=== PATIENT | female | born 1990 | race Two or more races ===

== ENCOUNTER 2020-05-17 04:27 | Emergency (ER) | payer SELFPAY ==
[2020-05-17 04:58] VITALS: BP 118/50; PULSE 78; RESP 18; TEMP 37; O2SAT 97; BMI 43.9
--- NOTE | 2020-05-17 05:05 | PC.NURSE ---
dr mohr at bedside pt skin appears to be eczema
--- NOTE | 2020-05-17 05:09 | ED.GENADULT ---
HPI - General Adult General Chief complaint: Allergic Reaction Stated complaint: Hives/Allergic reaction Time Seen by Provider: 05/17/20 05:09 Source: patient Mode of arrival: ambulatory Limitations: no limitations History of Present Illness HPI narrative: This is a 29-year-old female with past medical history of asthma who comes in with complaints of 1 week of rough patches of itchy skin showing up at various parts of her body to include her left upper extremity right cheek and scattered areas on the chest. She has attempted to take Benadryl without success but denies any fevers, chills, recent travel, change in any clothing, lotions, cleaning products. Related Data Allergies Allergy/AdvReac Type Severity Reaction Status Date / Time nut - unspecified [nut] Allergy Severe THROAT Unverified 03/28/20 16:48 ITCHY Sulfa (Sulfonamide Allergy Intermediate SULFA MED Unverified 03/28/20 16:48 Antibiotics) MIGRAINE [SULFA (SULFONAMIDE ANTIBIOTICS)] penicillin V Allergy Unknown rash Unverified 10/19/17 00:00 Penicillins [PENICILLINS] Allergy Unknown HIVES Unverified 03/28/20 16:48 SHELLFISH Allergy Intermediate SWELLING Uncoded 03/28/20 16:48 ENVIRONMENTAL Allergy Unknown RUNNY NOSE Uncoded 03/28/20 16:48 Review of Systems Review of Systems: Pertinent positives and negatives as stated in HPI 10 point review of systems is otherwise negative. PMFSH Past Medical History Source: nursing notes reviewed Medical History Asthma Social History Social History Alcohol intake: never Smoking Status: Current every day smoker Substance Use Type: Marijuana Substance Use Frequency: Daily Last Used Substance: Days (ago) Any prior treatment program specific to substance use: No Advance Directives: No Advance Directives Information Provided: No Physical Exam Vital Signs: Vital Signs: Last Vital Signs Temp 98.6 F 05/17/20 04:58 Pulse 78 05/17/20 04:58 Resp 18 05/17/20 04:58 BP 118/50 L 05/17/20 04:58 Pulse Ox 97 05/17/20 04:58 Body Mass Index 43.9 VITAL SIGNS: Reviewed. GENERAL: Well developed, well nourished, in no acute distress. HEAD: Normocephalic/atraumatic, EYES: PERRLA, EOMI intact without pain, no nystagmus/pallor/icterus noted EARS: Ext canals without abnormality, TMs non-bulging and non-erythematous NOSE: Nares patent bilateral OROPHARYNX: no oral lesions noted, posterior pharynx clear and non-erythematous without noted tonsillar enlargement/erythema/exudates NECK: Supple, no adenopathy LUNGS: Normal breath sounds. No adventitious sounds or accessory muscle use. SpO2<97> CARDIOVASCULAR: Regular rate and rhythm without noted murmurs, no JVD or lower extremity edema. ABDOMEN: Soft, non-tender, non-distended with bowel sounds. No rigidity. No guarding. No palpable masses or hernias noted MUSCULOSKELETAL: No tenderness, deformities, or effusions noted on gross inspection. EXTREMITIES: No cyanosis, clubbing or edema. SKIN: Inspection of the skin reveals Raised, rough patches on extensor aspect of left upper extremity/ right superior chest /right cheek, but no ulcerations, jaundice, pallor, or petechiae. NEUROLOGIC: Alert and oriented x 4. Strength and sensation to light touch were grossly intact x 4. Course Course Course Narrative: This is a 29-year-old female with history and clinical presentation consistent with eczema. Patient was given recommendations for treatment and discharged home in stable condition. Discharge Plan Discharge Clinical Impression: Eczema Qualifiers: Eczema type: unspecified Qualified Code(s): L30.9 - Dermatitis, unspecified Patient Disposition: Home, Self-Care Instructions: Eczema (ED) Additional Instructions: 1. Limit showers to 3 times a week, do not use excessively hot water. 2. Recommend using Dove or Cetaphil for body wash. 3. Recommend using any type of emollient either Vaseline or [id number] eczema lotion. The patient and/or family acknowledge understanding of results (as applicable), diagnosis, treatment plan, need for follow up, and symptoms that should prompt a return to the emergency room. Referrals: Physician,None [Primary Care Provider] - 2 days
== END 2020-05-17 05:57 | disposition home or self-care (01) ==
LOC: HO.ED 05:23
PROVIDERS: Emergency Provider Student in an Organized Health Care Education/Training Program
DX: L30.9 Dermatitis, unspecified (principal); J45.909 Unspecified asthma, uncomplicated; F17.200 Nicotine dependence, unspecified, uncomplicated; Z71.6 Tobacco abuse counseling; F12.90 Cannabis use, unspecified, uncomplicated
CPT/HCPCS: 99283; 99284

== ENCOUNTER 2020-08-06 11:37 | Outpatient (REF) | payer MEDICAID, SELFPAY ==
[2020-08-07 19:02] LABS: C. trachomatis RNA TMA NOT DETECTED (NOT DETECTED); N. gonorrhoeae RNA TMA NOT DETECTED (NOT DETECTED)
[2020-08-09 06:57] LABS: HPV mRNA E6/E7 rflx Not Detected (Not Detected)
== END 2020-08-06 11:38 | disposition home or self-care (01) ==
LOC: HO.LAB 11:37
PROVIDERS: Visit Provider Advanced Practice Midwife
DX: N93.0 Postcoital and contact bleeding (principal); Z97.5 Presence of (intrauterine) contraceptive device; Z20.2 Contact with and (suspected) exposure to infections with a predominantly sexual mode of transmission
CPT/HCPCS: 36415; 87491; 87591; 87624; 88142; 99212

== ENCOUNTER 2020-09-19 10:54 | Outpatient (REF) | payer MEDICAID, SELFPAY ==
--- NOTE | ~2020-09-19 | US_ITS ---
EXAMINATION: US PELVIS COMPLETE US PELVIS TRANSVAGINAL CLINICAL INFORMATION: Post coital bleeding. COMPARISON: Pelvic ultrasound dated 01/04/2014. TECHNIQUE: Transabdominal and transvaginal imaging was performed. FINDINGS: The uterus is of normal size and echogenicity measuring 9.1 x 3.9 x 4.8 cm. A regular homogeneous endometrium is identified measuring 0.8 cm. IUD appears within appropriate position in the endometrial cavity. Both ovaries are of normal size and echogenicity. The right measures 2.9 x 1.9 x 2.5 cm for a volume of 7.2 mL. The left measures 3.1 x 2.2 x 2.6 cm for a volume of 9.3 mL. Left ovarian corpus luteum measuring 1.8 x 1.8 x 1.5 cm. No follow-up imaging recommended. There is trace pelvic free fluid. US/US transvaginal IMPRESSION: Sonographically unremarkable uterus and endometrium. IUD within the endometrial cavity. Left ovarian corpus luteum measuring 1.8 cm. No follow-up imaging recommended. Sonographically unremarkable right ovary. Trace pelvic free fluid.
--- NOTE | ~2020-09-19 | US_ITS ---
EXAMINATION: US PELVIS COMPLETE US PELVIS TRANSVAGINAL CLINICAL INFORMATION: Post coital bleeding. COMPARISON: Pelvic ultrasound dated 01/04/2014. TECHNIQUE: Transabdominal and transvaginal imaging was performed. FINDINGS: The uterus is of normal size and echogenicity measuring 9.1 x 3.9 x 4.8 cm. A regular homogeneous endometrium is identified measuring 0.8 cm. IUD appears within appropriate position in the endometrial cavity. Both ovaries are of normal size and echogenicity. The right measures 2.9 x 1.9 x 2.5 cm for a volume of 7.2 mL. The left measures 3.1 x 2.2 x 2.6 cm for a volume of 9.3 mL. Left ovarian corpus luteum measuring 1.8 x 1.8 x 1.5 cm. No follow-up imaging recommended. There is trace pelvic free fluid. US/US pelvic complete IMPRESSION: Sonographically unremarkable uterus and endometrium. IUD within the endometrial cavity. Left ovarian corpus luteum measuring 1.8 cm. No follow-up imaging recommended. Sonographically unremarkable right ovary. Trace pelvic free fluid.
== END 2020-09-19 10:55 | disposition home or self-care (01) ==
LOC: HO.US 10:54
PROVIDERS: Visit Provider Advanced Practice Midwife
DX: N93.0 Postcoital and contact bleeding (principal)
CPT/HCPCS: 76830; 76856

== ENCOUNTER → 2020-09-24 12:21 | Outpatient (BNVA) | payer MEDICAID, SELFPAY | PROVIDERS: Visit Provider Advanced Practice Midwife ==

== ENCOUNTER 2020-11-29 13:06 | Outpatient (REF) | payer MEDICAID, SELFPAY ==
[2020-11-30 10:19] LABS: CT PCR NOT DETECTED (Not Detect.); NG PCR NOT DETECTED (Not Detect.)
[2020-11-30 12:32] LABS: BV Int Neg Control Negative (Negative); BV Int Pos Control Positive (Positive)
== END 2020-11-29 13:07 | disposition home or self-care (01) ==
LOC: HO.LAB 13:06
PROVIDERS: Visit Provider Advanced Practice Midwife
DX: N92.1 Excessive and frequent menstruation with irregular cycle (principal); R10.2 Pelvic and perineal pain; T83.32XA Displacement of intrauterine contraceptive device, initial encounter
CPT/HCPCS: 81003; 81025; 87480; 87491; 87510; 87591; 87660; 99212

== ENCOUNTER 2020-11-29 15:28 | Outpatient (REF) | payer MEDICAID, SELFPAY ==
--- NOTE | ~2020-11-29 | US_ITS ---
EXAMINATION: PELVIC ULTRASOUND CLINICAL INFORMATION: Check IUD COMPARISON: Previous pelvic ultrasound 09/19/2020 TECHNIQUE: Transabdominal and transvaginal pelvic ultrasound was performed. Transvaginal exam was performed for better visualization of uterus and ovaries. FINDINGS: The uterus is anteverted and measures 8.5 x 4.2 x 5.7 cm in dimension. There is an IUD seen in the lower uterine segment. This is 1.8 cm from the superior aspect of the endometrium. The endometrium does not appear thickened measuring 0.8 cm. There is no focal uterine lesion. The ovaries are normal-appearing. The right ovary measures 2.8 x 1.5 x 1.8 cm and the left ovary measures 2.8 x 1.6 x 1.9 cm. There is no fluid in the pelvis. US/US pelvic and transvaginal IMPRESSION: Low position of IUD in the lower uterine segment.
== END 2020-11-29 15:29 | disposition home or self-care (01) ==
LOC: HO.HMGCX 15:28
PROVIDERS: Visit Provider Advanced Practice Midwife
DX: Z30.431 Encounter for routine checking of intrauterine contraceptive device (principal); N91.2 Amenorrhea, unspecified
CPT/HCPCS: 76830; 76856

== ENCOUNTER → 2020-12-13 11:26 | Outpatient (BNVA) | payer MEDICAID, SELFPAY | PROVIDERS: Visit Provider Advanced Practice Midwife ==

== ENCOUNTER → 2021-01-03 15:47 | Outpatient (BNVA) | payer MEDICAID, SELFPAY | PROVIDERS: Visit Provider Advanced Practice Midwife ==

== ENCOUNTER 2021-04-21 16:42 | Emergency (ER) | payer MEDICAID, SELFPAY ==
--- NOTE | ~2021-04-21 | XR_ITS ---
EXAMINATION: XR CHEST CLINICAL INFORMATION: Infected. Setting in this sternum. COMPARISON: None TECHNIQUE: Frontal view of the chest was obtained. FINDINGS: The lungs are well-expanded and clear of acute process. The heart size and pulmonary vascularity is normal. There is a horizontal metal pins and overlying the left breast. Otherwise rest the soft tissues are unremarkable. No gross bony abnormality. XR/XR chest 1V IMPRESSION: Horizontal radiopaque pin overlying the left breast, ? Piercing. Otherwise lungs are clear.
[2021-04-21 16:58] VITALS: BP 136/73; PULSE 80; RESP 16; TEMP 36.3; O2SAT 98; BMI 43.9
--- NOTE | 2021-04-21 21:19 | ED_ITS ---
HPI - Skin/Abscess/Foreign Bdy General Chief complaint: Skin/Abscess/Foreign Body Stated complaint: ?infected piercing Time Seen by Provider: 04/21/21 20:37 Source: patient Mode of arrival: ambulatory Limitations: no limitations History of Present Illness HPI narrative: Patient presents to the ED for infected piercing in the midsternal chest. Patient states having pacing for 10 years. Patient states 4 days ago her son started grabbing on it and any turn red, swollen, slight pus discharge from the area. Patient denies any other complaints. Related Data Home Medications Medication Instructions Recorded Confirmed cetirizine 10 mg tablet (Zyrtec) 10 mg PO DAILY PRN 12/13/20 01/03/21 levonorgestrel 20 mcg/24 hours (7 INTRAUTERINE 12/13/20 01/03/21 yrs) 52 mg intrauterine device (Mirena) Previous Rx's Medication Instructions Recorded ibuprofen 400 mg tablet 400 mg PO TID 7 Days #21 tab 09/24/20 fluconazole 150 mg tablet 150 mg PO ONCE PRN 1 Days #1 tab 01/03/21 (Diflucan) clindamycin HCl 300 mg capsule 300 mg PO TID 10 Days #30 cap 04/21/21 naproxen 500 mg tablet 500 mg PO BID PRN #20 tab 04/21/21 Allergies Allergy/AdvReac Type Severity Reaction Status Date / Time nut - unspecified [nut] Allergy Severe THROAT Verified 04/21/21 19:32 ITCHY Sulfa (Sulfonamide Allergy Intermediate SULFA MED Verified 04/21/21 19:32 Antibiotics) MIGRAINE [SULFA (SULFONAMIDE ANTIBIOTICS)] penicillin V Allergy Unknown rash Verified 04/21/21 19:32 Penicillins [PENICILLINS] Allergy Unknown HIVES Verified 04/21/21 19:32 SHELLFISH Allergy Intermediate SWELLING Uncoded 03/28/20 16:48 ENVIRONMENTAL Allergy Unknown RUNNY NOSE Uncoded 03/28/20 16:48 Review of Systems Review of Systems: Yes all other systems are reviewed and are negative Constitutional: Constitutional: Reports as per HPI and Reports no additional constitutional complaints Eyes: Eyes: Reports as per HPI and Reports no additional eye complaints ENT: Reports system reviewed and no additional complaints, except as documented and Reports as per HPI Cardiovascular: Cardiovascular: Reports as per HPI and Reports no additional cardiovascular complaints Comments: Infected chest wall pericing Respiratory: Respiratory: Reports as per HPI and Reports no additional respiratory complaints Gastrointestinal: Gastrointestinal: Reports as per HPI and Reports no additional gastrointestinal complaints Genitourinary: Genitourinary: Reports no additional female genitourinary complaints and Reports as per HPI Musculoskeletal: Musculoskeletal: Reports no additional musculoskeletal complaints and Reports as per HPI Neurologic: Reports system reviewed and no additional complaints, except as documented and Reports as per HPI Psychiatric: Psychiatric: Reports no additional psychiatric complaints and Reports as per HPI [facility] Past Medical History Medical History (Updated 04/21/21 @ 21:32 by DELMY Vásquez) Asthma Depression PCOS (polycystic ovarian syndrome) Seasonal allergies Surgical History Hx of section Hx of tonsillectomy Family History Family History Father Asthma Mother Fibromyalgia Thyroid disease Paternal Aunt Breast cancer Paternal Grandmother Breast cancer Social History Social History Alcohol intake: never Substance Use Type: Marijuana Advance Directives: No Physical Exam Vital Signs: Vital Signs: Last Vital Signs Temp 97.4 F 04/21/21 16:58 Pulse 80 04/21/21 16:58 Resp 16 04/21/21 16:58 BP 136/73 04/21/21 16:58 Pulse Ox 98 04/21/21 16:58 Body Mass Index 43.9 Const: General: cooperative, healthy appearing, comfortable, no acute distress, well developed, alert, awake and Physically active Orientation/consciousness: patient oriented x3 HENMT: Head: Yes normal to inspection, Yes No palpable skull fracture present, Yes normocephalic, Yes atraumatic and No abrasion Eyes: General: appearance normal, both eyes and all related structures Neck: Neck: Yes normal visual inspection, Yes full ROM, Yes no lymphadenopa thy, Yes no meningeal signs, Yes trachea midline, Yes supple and No tender Chest: Chest palpation & inspection: normal inspection of the chest and normal palpation of entire chest wall Chest/axillae images: 1. Needle piercing with surrounded erythema, swelling, and mild pus discharge. Resp: Effort & Inspection: normal respiratory effort and able to speak in com plete sentences Auscultation: clear to auscultation bilaterally Cardio: Jugular venous distension: no JVD Heart sounds: S1 normal heart sound present and S2 normal heart sound present GI: Inspection: Yes normal to inspection and No abdominal wall ecchymosis Palpation (GI): Soft to palpation, not firm, nontender, no guarding and not rigid : General: No CVA tenderness and Yes no CVA tenderness Back/Spine/Pelvis: Back: no CVA tenderness, No CVA tenderness and No back tenderness Skin: General skin exam: no rashes or lesions noted and elasticity normal Neuro: General: patient oriented x3, gait normal, no meningeal signs and CN's II-XI intact bilaterally Cranial nerves: Yes CN's II-XII intact bilaterally Extrem: General: Yes normal to inspection and Yes full ROM Psych: Appearance: grossly normal, well kempt and not disheveled Course Course Course Narrative: Chest x-ray will be ordered to look for needle placement. Reevaluation(s) Reevaluation #1: X-ray does not show any needle depth. Pacing area clean with sterile normal saline and Betadine iodine. 10 mL of lidocaine 2% was placed a round needle piercing. Size 11 blade was made to make incision. No pus drainage was drained only blood. Needle was removed. Pressure dressing placed. Patient states she can't take penicillin or cephalosporins due to allergy. Will be discharged with clindamycin. Patient states up-to-date with tetanus. Time: 21:30 MDM - Skin/Abscess/Foreign Bdy MDM Narrative Medical decision making narrative: Foreign body removal Discharge Plan Discharge Clinical Impression: Cellulitis Patient Disposition: Home, Self-Care Instructions: Cellulitis (ED) Additional Instructions: Your pacing was infected so it was removed. You need to be done with antibiotics to clear up the infection. Return to the ED for worsening redness, pus discharge, foul odor, fever, chills, chest pain, or any other concerning symptoms. Please follow-up with PCP Prescriptions: New clindamycin HCl 300 mg capsule 300 mg PO TID 10 Days Qty: 30 RF: 0 naproxen 500 mg tablet 500 mg PO BID PRN (Reason: pain) Qty: 20 RF: 0 No Action Mirena 20 mcg/24 hours (6 yrs) 52 mg intrauterine device intrauterine RF: 0 cetirizine [Zyrtec] 10 mg tablet 10 mg PO DAILY PRNRF: 0 fluconazole [Diflucan] 150 mg tablet 150 mg PO ONCE PRN (Reason: personal) 1 Days Qty: 1 RF: 1 ibuprofen 400 mg tablet 400 mg PO TID 7 Days Qty: 21 RF: 0 Stand Alone Forms: Work/School Release Print Language: Lithuanian
[2021-04-21] MEDS: Lidocaine HCl 2 % MPF 5 ML VIAL INFILTRATI ×2 (21:20→21:21)
== END 2021-04-21 21:43 | disposition home or self-care (01) ==
PROVIDERS: Emergency Provider Internal Medicine
DX: M79.5 Residual foreign body in soft tissue (principal); L03.313 Cellulitis of chest wall
CPT/HCPCS: 10120; 71045; 99283; 99284

== ENCOUNTER 2021-09-25 12:48 | Outpatient (REF) | payer MEDICAID, SELFPAY ==
[2021-09-26 09:19] LABS: CT PCR NOT DETECTED (Not Detect.); NG PCR NOT DETECTED (Not Detect.)
[2021-09-26 09:44] LABS: BV Int Neg Control Negative (Negative); BV Int Pos Control Positive (Positive)
== END 2021-09-25 12:49 | disposition home or self-care (01) ==
LOC: HO.LAB 12:48
PROVIDERS: Visit Provider Advanced Practice Midwife
DX: Z30.432 Encounter for removal of intrauterine contraceptive device (principal)
CPT/HCPCS: 58301; 87480; 87491; 87510; 87591; 87660

== ENCOUNTER 2021-12-29 11:24 | Emergency (ER) | payer MEDICAID, SELFPAY ==
[2021-12-29 11:32] VITALS: BP 136/77; PULSE 75; RESP 18; TEMP 37.2; O2SAT 97; BMI 42.0
[2021-12-29 12:01] LABS: COVID-19 Test Negative (Negative)
--- NOTE | 2021-12-29 12:10 | ED.GENADULT ---
HPI - General Adult General Chief complaint: Upper Respiratory Symptoms Stated complaint: cough asthma Time Seen by Provider: 12/29/21 12:10 Source: patient Mode of arrival: ambulatory Limitations: no limitations History of Present Illness HPI narrative: Patient is a 31 year old female presenting to the emergency department today with a cough. Patient states that since , she has had a cough. Patient states that she has a history of asthma and her nebulizer at home is broken. Patient denies any dizziness, lightheadedness, abdominal pain, nausea, vomiting, fever, chills, blurry vision, double vision, loss of vision, chest pain, difficulty breathing, shortness of breath, back pain, night sweats, pain with urination, increased urinary frequency, increased urinary urgency, blood in her urine or stool, syncope or a near syncopal episode, recent trauma or falls, bowel incontinence, bladder incontinence, bowel retention, bladder retention, or any other complaints at this time. Onset (ago): day(s) Severity: mild Severity scale (1-10): 2 Relieving factors: none Exacerbating factors: none Associated symptoms: cough Treatments prior to arrival: none Related Data Home Medications Medication Instructions Recorded Confirmed cetirizine 10 mg tablet (Zyrtec) 10 mg PO DAILY PRN 12/13/20 01/03/21 levonorgestrel 20 mcg/24 hours (7 intrauterine 12/13/20 01/03/21 yrs) 52 mg intrauterine device (Mirena) hydroxychloroquine 200 mg tablet 200 mg PO BID 09/25/21 metformin 500 mg tablet,extended 1,000 mg PO BID 09/25/21 release 24 hr Previous Rx's Medication Instructions Recorded ibuprofen 400 mg tablet 400 mg PO TID break through 09/24/20 bleeding 7 days #21 tabs doxycycline hyclate 100 mg tablet 100 mg PO BID 7 days #14 tabs 12/29/21 fluconazole 150 mg tablet 150 mg PO Q3D 2 doses #2 tabs 12/29/21 (Diflucan) prednisone 20 mg tablet 20 mg PO DAILY 12 days #26 tabs 12/29/21 Allergies Allergy/AdvReac Type Severity Reaction Status Date / Time nut - unspecified [nut] Allergy Severe THROAT Verified 09/25/21 13:03 ITCHY Sulfa (Sulfonamide Allergy Intermediate SULFA MED Verified 09/25/21 13:03 Antibiotics) MIGRAINE [SULFA (SULFONAMIDE ANTIBIOTICS)] penicillin V Allergy Unknown rash Verified 09/25/21 13:03 Penicillins [PENICILLINS] Allergy Unknown HIVES Verified 09/25/21 13:03 SHELLFISH Allergy Intermediate SWELLING Uncoded 03/28/20 16:48 ENVIRONMENTAL Allergy Unknown RUNNY NOSE Uncoded 03/28/20 16:48 Review of Systems Constitutional: Constitutional: Reports no additional constitutional complaints, Denies chills, Denies fever(s) and Denies night sweats Eyes: Eyes: Reports no additional eye complaints, Denies blurry vision, Denies change in vision, Denies diplopia, Denies eye discharge, Denies loss of vision and Denies eye pain ENT: Denies dizziness Cardiovascular: Cardiovascular: Reports no additional cardiovascular complaints, Denies chest pain, Denies lightheadedness, Denies Loss of Consciousness and Denies dyspnea Respiratory: Respiratory: Reports no additional respiratory complaints, Reports cough and Denies dyspnea Gastrointestinal: Gastrointestinal: Reports no additional gastrointestinal complaints, Denies abdominal pain, Denies melena, Denies hematochezia, Denies change in bowel habits and Denies change in stool character Genitourinary: Genitourinary: Denies hematuria, Denies urinary frequency, Denies dysuria, Denies urinary incontinence, Denies urinary hesitancy and Denies urinary urgency Musculoskeletal: Musculoskeletal: Reports no additional musculoskeletal complaints, Denies numbness and Denies tingling Neurologic: Denies dizziness, Denies loss of vision, Denies numbness and Denies tingling Psychiatric: Psychiatric: Reports no additional psychiatric complaints Endocrine: Endocrine: Reports no additional endocrine complaints Hematologic/Lymphatic: Hematologic/Lymphatic: Reports no additional hematologic/lymphatic complaints Allergic/Immunologic: Allergic/Immunologic: Reports no additional allergic/immunologic complaints [facility] [place] Past Medical History Attestation statement: The following information was validated with the patient. Source: old records reviewed Medical History Asthma Benign neoplasm of pituitary gland and craniopharyngeal duct Depression Lupus PCOS (polycystic ovarian syndrome) Seasonal allergies Surgical History Hx of section Hx of tonsillectomy Family History Family History Father Asthma Mother Fibromyalgia Thyroid disease Paternal Aunt Breast cancer Paternal Grandmother Breast cancer Maternal Aunt Breast cancer Social History Social History Alcohol intake: never Patient Tobacco Use Status: Current someday Tobacco user Substance Use Type: Marijuana Advance Directives: No Advance Directives Information Provided: No Current occupational status: employed 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 Physical Exam ED Vital Signs: Vital Signs - 24 hr 12/29/21 11:32 12/29/21 12:25 Temperature 98.9 F Pulse Rate 75 86 Respiratory Rate 18 18 Blood Pressure 136/77 Pulse Oximetry 97 Oxygen Delivery Method Room Air BMI result Body Mass Index 42.0 Const General: cooperative, no acute distress, alert and awake Nutritional Appearance: well nourished Orientation/consciousness: patient oriented x3 Limitations: no limitations HENMT Head: Yes normal to inspection and Yes atraumatic Ears: hearing grossly normal bilaterally and external ears normal General nose exam: Normal external nose present, no nasal discharge noted and no epistaxis Face and sinus: Yes normal facial exam, No abrasion and No laceration Mouth: Normal oral and palatal mucosa present, no drooling and no muffled voice Eyes General: appearance normal, both eyes and all related structures Periorbital: periorbital findings normal Eyelids: Yes eyelids normal Conjunctivae: conjunctivae normal Pupils: Equal, round and reactive pupils present EOM: EOMs intact bilaterally Neck Neck: Yes normal visual inspection, Yes full ROM and Yes no lymphadenopathy Chest Chest palpation & inspection: normal inspection of the chest Resp Effort & Inspection: normal respiratory effort and able to speak in complete sentences Auscultation: wheezes scattered wheezes Cardio Rate: regular rate Rhythm: regular rhythm GI Inspection: Yes normal to inspection Neuro General: patient oriented x3 and moves all extremities Cranial nerves: Yes Equal, round and reactive pupils present Cognition (Neuro): normal cognition Motor exam (neuro): 5/5 motor strength present throughout Sensory Exam: Normal double simultaneous stimulation for sensation Coordination: [id number] test normal Extrem General: Yes normal to inspection, Yes full ROM and Yes capillary refill normal Psych Appearance: grossly normal Mental Status: mental status grossly normal Affect: normal affect Attitude: cooperative Thought process: Normal thought process present Thought content: Normal thought content present Insight: Good insight present (Psych) Medical Decision Making MDM Narrative Medical decision making narrative: Patient is a 31 year old female presenting to the emergency department today with a cough. Patient's physical exam showed scattered wheezes but was otherwise unremarkable. Patient's rapid COVID-19 and influenza swabs were negative. I explained my physical exam findings as well as all test results to the patient. I answered all questions asked by the patient. Patient received IM Decadron and a duoneb which she stated helped her symptoms significantly. I stressed the importance of the patient taking her medication as prescribed. I stressed the importance of the patient following up with her primary care provider. I stressed the importance of the patient returning to the emergency department immediately if her symptoms were to worsen or if she were to develop any dizziness, shortness of breath, difficulty breathing, chest pain, blurry vision, loss of vision, nausea, vomiting, abdominal pain, fever, chills, back pain, or any other complaints. Patient verbalized agreement and understanding with this treatment plan and discharge. Differential Diagnosis Differential Diagnosis: asthma exacerbation, viral illness, cough Medical Records Medical records reviewed: Yes I reviewed the patient's medical records. Lab Data Lab results reviewed: Yes I reviewed the patient's lab results. Labs: Lab Results 12/29/21 12/29/21 Range/Units 11:38 11:38 COVID-19 (MEDHAT) Negative (Negative) COVID-19 Clin Com See Note Influenza Type A (RAI) Negative (Negative) Influenza Type B (RAI) Negative (Negative) Influenza A & B Note See Note Discharge Plan Discharge Clinical Impression: Asthma exacerbation Patient Disposition: Home, Self-Care Instructions: Asthma (ED) Additional Instructions: Follow up with your primary care provider. Return to the emergency department immediately if your symptoms worsen or if you develop any dizziness, shortness of breath, difficulty breathing, chest pain, blurry vision, loss of vision, nausea, vomiting, abdominal pain, fever, chills, back pain, or any other complaints. Prescriptions: New prednisone 20 mg tablet 20 mg PO DAILY 12 Days Qty: 26 0RF Rx Instructions: Take 3 tablets for 5 days THEN; Take 2 tablets for 4 days THEN; Take 1 tablet for 3 days doxycycline hyclate 100 mg tablet 100 mg PO BID 7 Days Qty: 14 0RF fluconazole [Diflucan] 150 mg tablet 150 mg PO Q3D Qty: 2 0RF Rx Instructions: may repeat second dose 72 hrs after first dose if symptoms persist No Action Mirena 20 mcg/24 hours (6 yrs) 52 mg intrauterine device intrauterine cetirizine [Zyrtec] 10 mg tablet 10 mg PO DAILY PRN ibuprofen 400 mg tablet 400 mg PO TID 7 Days Qty: 21 0RF Rx Instructions: break through bleeding protocol one week dosing only metformin 500 mg tablet extended release 24 hr 1,000 mg PO BID hydroxychloroquine 200 mg tablet 200 mg PO BID Referrals: [facility] [place] Family Medicine [Provider Group] (Call to establish and follow up with a primary care provider. If you have a primary care provider, please follow up with them. ) [facility] [place] Primary Care, Leno [Provider Group] (Call to establish and follow up with a primary care provider. If you have a primary care provider, please follow up with them. ) [facility] [place] Primary Care,Andrea [Provider Group] (Call to establish and follow up with a primary care provider. If you have a primary care provider, please follow up with them. ) Stand Alone Forms: Work/School Release Interventions: ED Discharge Assessment Last Done: 12/29/21 13:03 Discharge Date/Time: 12/29/21 13:06 Print Language: Urdu
[2021-12-29 12:22] LABS: IDNOW Serial# 9DB6401D; Influenza A Negative (Negative); Influenza B2 Negative (Negative)
[2021-12-29] MEDS: Albuterol/Iprat 2.5/0.5MG 3 ML AMPUL.NEB INHALE (12:23)
[2021-12-29 12:25] VITALS: PULSE 86; RESP 18; O2SAT 97
[2021-12-29] MEDS: dexAMETHasone sod phosphate 10 MG/ML VIAL IM (13:00)
== END 2021-12-29 13:06 | disposition home or self-care (01) ==
PROVIDERS: Emergency Provider Emergency Medicine
DX: J45.901 Unspecified asthma with (acute) exacerbation (principal); R05.9 Cough, unspecified; F17.200 Nicotine dependence, unspecified, uncomplicated; Z20.822 Contact with and (suspected) exposure to COVID-19; Z71.6 Tobacco abuse counseling; Z79.899 Other long term (current) drug therapy
CPT/HCPCS: 87502; 87635; 94640; 96372; 99284; J1100

== ENCOUNTER 2024-01-10 00:21 | Emergency (ER) | payer MEDICAID, SELFPAY ==
--- NOTE | ~2024-01-10 | XR_ITS ---
EXAMINATION: XR FOOT, RIGHT CLINICAL INFORMATION: pain, swelling COMPARISON: None available. TECHNIQUE: AP, lateral, and oblique views of the right foot. FINDINGS: Radiod[employer] toenail decorations are noted. The bones are normal. Mild soft tissue swelling in the foot. No fracture. Alignment is anatomic. Joint spaces are maintained. XR/XR foot RT min 3V IMPRESSION: Mild soft tissue swelling in the foot. No acute osseous findings.
[2024-01-10 01:18] VITALS: BP 124/70; PULSE 85; RESP 17; TEMP 37; O2SAT 99; BMI 48.4
--- NOTE | 2024-01-10 02:22 | ED_ITS ---
HPI - Skin/Abscess/Foreign Bdy General Chief complaint: Extremity Injury, Lower Stated complaint: right foot pain swelling Time Seen by Provider: 01/10/24 02:12 Source: patient and old records reviewed Mode of arrival: ambulatory Limitations: no limitations History of Present Illness ED Provider: YURIDIA PACHECO narrative: 33 yo female with PMH of PCOS and lupus here with c/o R foot swelling and redness she is on plaquenil initially started after dropping heavy object on foot but then noted redness and swelling isolated to top of foot no fevers, saw faint pink streak on lower ankle as well. She has not been seen by anyone. Area was present when she was in [place] denies skin trauma or open wounds MD complaint: rash Onset (ago): day(s) (3) Tetanus up to date: yes Location: R foot Severity: mild Quality: aching Pain Consistency: constant Relieving factors: none Exacerbating factors: palpation Context: other (trauma) Associated symptoms: denies other symptoms Treatments prior to arrival: none Related Data Home Medications ?Medication ?Instructions ?Recorded ?Confirmed cetirizine 10 mg tablet (Zyrtec) 10 mg PO DAILY PRN 12/13/20 01/03/21 levonorgestrel 21 mcg/24 hr (up to intrauterine 12/13/20 01/03/21 8 years) 52 mg intrauterine device (Mirena) hydroxychloroquine 200 mg tablet 200 mg PO BID 09/25/21 metformin 500 mg tablet,extended 1,000 mg PO BID 09/25/21 release 24 hr Previous Rx's ?Medication ?Instructions ?Recorded ibuprofen 400 mg tablet 400 mg PO TID break through 09/24/20 bleeding 7 days #21 tabs doxycycline hyclate 100 mg tablet 100 mg PO BID 7 days #14 tabs 12/29/21 fluconazole 150 mg tablet 150 mg PO Q3D 2 doses #2 tabs 12/29/21 (Diflucan) prednisone 20 mg tablet 20 mg PO DAILY 12 days #26 tabs 12/29/21 clindamycin HCl 300 mg capsule 300 mg PO Q8H 7 days #21 caps 01/10/24 Allergies Allergy/AdvReac Type Severity Reaction Status Date / Time nut - unspecified [nut] Allergy Severe THROAT Verified 01/10/24 01:24 ITCHY Sulfa (Sulfonamide Allergy Intermediate SULFA MED Verified 01/10/24 01:24 Antibiotics) MIGRAINE [SULFA (SULFONAMIDE ANTIBIOTICS)] penicillin V Allergy Unknown rash Verified 01/10/24 01:24 Penicillins [PENICILLINS] Allergy Unknown HIVES Verified 01/10/24 01:24 SHELLFISH Allergy Intermediate SWELLING Uncoded 01/10/24 01:24 ENVIRONMENTAL Allergy Unknown RUNNY NOSE Uncoded 01/10/24 01:24 Review of Systems Review of Systems: Constitutional : No Fever, No Chills ENT/Mouth : No sore throat, No Rhinorrhea Eyes: No Eye Pain, No Swelling, No Redness Cardiovascular : No Chest Pain, No SOB Respiratory : No Cough, No Sputum Gastrointestinal : No Nausea, No Vomiting, No Diarrhea, No abdominal Pain Genitourinary : No Dysuria, No Hematuria Musculoskeletal : No joint pain, No Myalgias, No Joint Swelling Skin : No Skin Lesions, positive skin rash Neuro : No Weakness, No Numbness, No Headache Psych : No Anxiety, No Depression Heme/Lymph: No Bruising, No Bleeding,No Lymphadenopathy Endocrine : No Polyuria, No Polydipsia All other systems reviewed and are negative [facility] Past Medical History Attestation statement: The following information was validated with the patient. 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 Oriented X3. No acute distress. Eyes: Pupils equal, round and reactive to light. ENT: Pharynx normal. Neck: Normal inspection. Neck supple. CVS: Normal heart rate and rhythm. Pulses normal. Respiratory: No respiratory distress. Breath sounds normal. Abdomen: Soft and nontender. Skin: Skin warm and dry. Normal skin color. Normal skin turgor. Extremities: No lower extremity edema. No calf ttp dorsum of R foot redness and mild swelling I can see a very faint pink streak noted near ankle she is NV intact no abscess noted no crepitus no sig ttp normal ROM of joints Neuro: Oriented X 3. No motor deficit. No sensory deficit. Medical Decision Making Medical Decision Making MDM Narrative: 33 yo female with PMH of PCOS and lupus here with c/o R foot swelling and redness she has no systemic symptoms has PCN allergy and has done well with clindamycin in the past at this time will start on oral antibiotics it is isolated to the foot no calf pain swelling or ttp to suggest DVT - not toxic appearing. Given strict precautions to return Differential Diagnosis Differential Diagnoses: The differential diagnosis associated with the presentation includes strain, cellulitis Admission/Observation Consideration of admission/observation: Escalation of care including admission/observation considered not toxic, no systemic symptoms Independent Interpretation I performed an independent interpretation of an: Plain X-Ray (no fx) Radiology Impression Discussion of test interpretation with radiology: I have reviewed the radiologist's reading. External Record Review External record reviewed: Office record Prescription Management I considered prescription management with: Antibiotic Discharge Plan Discharge Clinical Impression: Cellulitis Qualifiers: Site of cellulitis: extremity Site of cellulitis of extremity: lower extremity Laterality: right Qualified Code(s): L03.115 - Cellulitis of right lower limb Patient Disposition: Home, Self-Care Instructions: Cellulitis (ED) Additional Instructions: xray normal return for worsening redness, fevers, increased swelling or pain take an over the counter probiotic while on this antibiotic seek care if you have more than 6 episodes of diarrhea a day Prescriptions: New clindamycin HCl 300 mg capsule 300 mg PO Q8H 7 Days Qty: 21 0RF No Action prednisone 20 mg tablet 20 mg PO DAILY 12 Days Qty: 26 0RF Rx Instructions: Take 3 tablets for 5 days THEN; Take 2 tablets for 4 days THEN; Take 1 tablet for 3 days doxycycline hyclate 100 mg tablet 100 mg PO BID 7 Days Qty: 14 0RF fluconazole [Diflucan] 150 mg tablet 150 mg PO Q3D Qty: 2 0RF Rx Instructions: may repeat second dose 72 hrs after first dose if symptoms persist Mirena 20 mcg/24 hours (6 yrs) 52 mg intrauterine device intrauterine cetirizine [Zyrtec] 10 mg tablet 10 mg PO DAILY PRN ibuprofen 400 mg tablet 400 mg PO TID 7 Days Qty: 21 0RF Rx Instructions: break through bleeding protocol one week dosing only metformin 500 mg tablet extended release 24 hr 1,000 mg PO BID hydroxychloroquine 200 mg tablet 200 mg PO BID Print Language: Kenyan
[2024-01-10] MEDS: Clindamycin HCL 300 MG CAPSULE PO (02:35)
[2024-01-10 02:43] VITALS: BP 120/64; PULSE 80; RESP 18; TEMP 36.8; O2SAT 99
[2024-01-10 02:45] VITALS: BP 120/64; PULSE 80; RESP 18; TEMP 36.8; O2SAT 99
== END 2024-01-10 02:45 | disposition home or self-care (01) ==
PROVIDERS: Emergency Provider Emergency Medicine
DX: L03.115 Cellulitis of right lower limb (principal); F17.200 Nicotine dependence, unspecified, uncomplicated
CPT/HCPCS: 73630; 99283; 99284

== ENCOUNTER → 2024-02-14 10:11 | Outpatient (BNVA) | payer MEDICAID, SELFPAY | PROVIDERS: PCP Nurse Practitioner; Visit Provider Physician Assistant Surgical ==

== ENCOUNTER 2024-03-17 08:00 | Outpatient (AMB) | payer MEDICAID, SELFPAY ==
--- NOTE | 2024-03-17 09:06 | MHC.OFFVISWM ---
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 BMI 44.3 Allergies nut - unspecified [nut] Allergy (Severe, Verified 03/17/24 09:06) THROAT ITCHY Sulfa (Sulfonamide Antibiotics) [SULFA (SULFONAMIDE ANTIBIOTICS)] Allergy (Intermediate, Verified 03/17/24 09:06) SULFA MED MIGRAINE penicillin V Allergy (Unknown, Verified 03/17/24 09:06) rash Penicillins [PENICILLINS] Allergy (Unknown, Verified 03/17/24 09:06) HIVES SHELLFISH Allergy (Intermediate, Uncoded 03/17/24 09:06) SWELLING ENVIRONMENTAL Allergy (Unknown, Uncoded 03/17/24 09:06) RUNNY NOSE Medication List - Last Reconciled 03/17/24 by Gustavo Lim MD albuterol sulfate 90 mcg/actuation 2 puffs inhalation Q6H PRN hydroxychloroquine (Plaquenil) 200 mg PO BID metformin ER 1,000 mg PO BID semaglutide (weight loss) (Wegovy) 0.5 mg subcut QWEEK HPI HPI 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 BMI 44.3: Details: Start time: 9.00am, End time: 9.35am ?I spent 30 minutes speaking with the patient on the phone plus an additional 5 minutes reviewing and updating records for a total of 35 minutes HPI Comments Details: Previous weight loss efforts: Wegovy (lost 30lbs) Wakes up: 6.30am, Sleeps: 9.30pm Breakfast: skips Lunch: skips Dinner: 4pm (rice, beans, corn, chicken, pasta) Snacks: Fruits/cheese x1-2 before dinner Exercise: Stepper Fluids: coffee: none, tea: none, soda: none, juice: (cranberry) 2-3/wk, ETOH: none PFSH Medical History (Updated 03/17/24 @ 09:12 by Gustavo Lim MD) Morbid obesity Benign neoplasm of pituitary gland and craniopharyngeal duct Lupus Seasonal allergies Depression PCOS (polycystic ovarian syndrome) Asthma Surgical History (Updated 02/14/24 @ 11:13 by Yesica Santos CMA) Hx of section Hx of tonsillectomy Family History (Updated 02/14/24 @ 10:36 by Yesica Santos CMA) Father Asthma Mother Fibromyalgia Thyroid disease Paternal Aunt Breast cancer Paternal Grandmother Breast cancer Maternal Aunt Breast cancer Family/Other FH: thyroid cancer Social History (Updated 02/14/24 @ 11:14 by Yesica Santos CMA) Alcohol intake: never Patient Tobacco Use Status: Current someday Tobacco user Cigarettes Per Day: 3 Substance Use Type: Marijuana Current occupational status: employed 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 Female Reproductive History Menstrual Age of Menarche: 11 Telehealth Telehealth Telehealth Platform: Telephone Location of provider rendering services: practice address Location of patient: address on file Patient Identification confirmed using: Name, : Yes Telehealth method: voice only Patient verbally consented to treatment: Yes Patient verbally consented to billing insurance company: Yes Patient informed of any privacy concerns related to visit: Yes Minutes spent on Phone/Video with Pt.: 35 Assessment & Plan Assessment & Plan (1) Morbid obesity: Code(s): E66.01 - Morbid (severe) obesity due to excess calories Category: Medical Plan: 1.? Plan for lap sleeve gastrectomy. If diaphragmatic or ventral hernias are present at time of surgery, these will be repaired laparoscopically as well. Risks and complications include possible conversion to an open procedure, anastomotic leak, bleeding requiring transfusion, small bowel obstruction, , DVT and pulmonary embolism, cardiac, or pulmonary complications, as skilled nursing complications such as anastomotic ulcer, insufficient weight loss and vitamin deficiencies. I emphasized the importance of close follow-up, adherence to instructions and good communication. 2. You will receive a link of our software maximiliano to generate an individualized nutritional and exercise plan specific for you. Please send me a screenshot of the plans you will generate Meal to include lean meat (beef, fish, pork, turkey, chicken), or chinese yogurt, or egg whites, or beans with a salad with olive oil and fruits (berries, pears, apples, kiwi). Avoid salt, breads, potatoes, rice, pasta, desserts. ?3. If you choose shakes, each shake would be drunk slowly, like coffee in a period of 2 hours. ?4. If you choose bars, cut each bar in 4 pieces and eat each piece in 30min ?to make each bar last 2 hours. ?5. I emphasized the importance of measuring accurately the food portion and measure it when serving the food in plate ?6. The meal portions include a specific number of forks of meat and salad. You always eat the meat portion but you can replace up to half of salad/vegetables portion with rice, potatoes or pasta, or a fruit ?if you like. The less you do it the better weight loss will be. ?7. One full-size fork is what it can be scooped on the fork without falling aside and not what can be bit with the fork. Use regular forks like those you find in a typical restaurant. ?8.? Please send me weight measurements as soon as possible and then once a week. Always include your diet and exercise plan. 9. The best choice would be to purchase a stationary bike, elliptical or treadmill at home that can track calories. Let me know if you do so I can give you an exercise plan. ?10.?It is important of avoiding and for at least 18 months postoperatively and has been discussed at the infosession. ?11. Goal is to lose at least 1.5-2lbs per week ?12. Goal to lose 10% of your weight before surgery, which is about 26lbs. Ultimate weight goal: 232lbs before surgery 13. Please follow the diet plan exactly without any change. If you don't like something about the plan or you feel hungry you need to communicate with me so I can help you revise the plan. You should not change the plan yourself. 14. To be scheduled for EGD due to assess the anatomy of the stomach. The possibility of biopsies was discussed. Patient needs to avoid use of NSAIDs and aspirin for 1 week prior to EGD. Risks of perforation and bleeding was discussed with the patient. This will be an outpatient procedure with IV sedation.
[2024-03-17 09:15] VITALS: BMI 44.3
== END 2024-03-17 09:35 | disposition home or self-care (01) ==
LOC: HO.HBS 08:00
PROVIDERS: PCP Nurse Practitioner; Referring Provider Nurse Practitioner; Visit Provider Surgery
DX: E66.01 Morbid (severe) obesity due to excess calories (principal); Z68.41 Body mass index [BMI] 40.0-44.9, adult
CPT/HCPCS: 99203

== ENCOUNTER → 2024-03-17 08:00 | Outpatient (BNVA) | payer MEDICAID, SELFPAY | PROVIDERS: PCP Nurse Practitioner; Visit Provider Surgery ==

== ENCOUNTER → 2024-03-22 10:00 | Outpatient (BNVA) | payer MEDICAID, SELFPAY | PROVIDERS: PCP Nurse Practitioner; Visit Provider Counselor Mental Health ==

== ENCOUNTER → 2024-03-22 10:00 | Outpatient (AMB) | payer OTHER, SELFPAY ==
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
== END ==
PROVIDERS: PCP Nurse Practitioner; Visit Provider Counselor Mental Health
DX: F43.23 Adjustment disorder with mixed anxiety and depressed mood (principal); E66.01 Morbid (severe) obesity due to excess calories
CPT/HCPCS: 90837

== ENCOUNTER 2024-03-30 09:22 | Outpatient (REF) | payer MEDICAID, SELFPAY ==
--- NOTE | ~2024-03-30 | XR_ITS ---
EXAMINATION: XR CHEST CLINICAL INFORMATION: E66.01 - Morbid (severe) obesity due to excess calories COMPARISON: None available. TECHNIQUE: PA and lateral views of the chest. FINDINGS: Cardiac, hilar, and mediastinal contours are normal. The lungs are clear bilaterally. There is no pneumothorax or effusion. There is no soft tissue or bony abnormality. XR/XR chest 2V IMPRESSION: Normal chest. Electronically signed by: Harpreet Schwartz MD 06/10/2024 07:07 PM KEILY CARROLL
--- NOTE | 2024-03-30 09:30 | ECG_ITS ---
Test Reason : MOR OBS Blood Pressure : / mmHG Vent. Rate : 084 BPM Atrial Rate : 084 BPM P-R Int : 132 ms QRS Dur : 094 ms QT Int : 350 ms P-R-T Axes : 033 039 017 degrees QTc Int : 413 ms Normal sinus rhythm Normal ECG No previous ECGs available Referred By: Gustavo Lim Electronically Signed By:ELLIS DAVID
[2024-03-30 09:42] LABS: MANUAL DIFF FLAG NO
[2024-03-30 10:11] LABS: Basophils Percent Auto 0.4 % (0-2); Eosinophils Percent Auto 0.5 % (0-4); Hematocrit 40.8 % (37.0-47.0); Hemoglobin 13.3 g/dl (12.0-16.0); Imm Gran Abs Auto 0.01 X10*3/uL (0.00-0.03); Imm Gran Pct Auto 0.2 % (0.0-0.4); Mean Corpuscular HGB Conc 32.6 g/dl (31.0-35.0); Mean Corpuscular Hemoglobin 24.1 pg (27.0-33.0); Mean Corpuscular Volume 73.8 fL (80.0-98.0); Monocytes Absolute Auto 0.4 X10*3/uL (0.1-1.2); Monocytes Percent Auto 6.5 % (2-11); Neutrophils Absolute Auto 3.1 x10*3/uL (2.0-8.3); Neutrophils Percent Auto 56.4 % (45-73); Platelet Count 209 X10*3/uL (160-400); Red Blood Count 5.53 X10*6/uL (4.20-5.50); Red Cell Distribution Width 17.1 % (11.0-16.0); White Blood Count 5.5 X10*3/uL (4.8-10.8)
[2024-03-30 10:36] LABS: Estimated Average Glucose 105 mg/dL; Hemoglobin A1c % 5.3 % (<6.0)
[2024-03-30 11:00] LABS: Alanine Aminotransferase 46 U/L (0-31); Albumin Level 4.2 g/dL (3.5-5.0); Alkaline Phosphatase 79 U/L (39-117); Anion Gap 10 (12-20); Aspartate Amino Transferase 25 U/L (5-31); Bilirubin Total 0.3 mg/dL (0.0-1.0); Blood Urea Nitrogen 13 mg/dL (9-16); C Reactive Protein 0.85 mg/dL (< or = 0.50); Calcium 9.2 mg/dL (8.4-10.2); Carbon Dioxide 24 mmol/L (22-29); Chloride 110 mmol/L (96-108); Cholesterol 140 mg/dL (<200); Estimated Glomerular Filt Rate > 60; Ferritin 33 ng/mL (10-122); Glucose Random 95 mg/dL (60-115); HDL Cholesterol 41 mg/dL (>40); Insulin 19 uU/mL (2-29); Iron 19 mcg/dL (30-160); LDL Cholesterol Calculated 92 mg/dL (<100); Percent Iron Saturation 6 % (15-50); Potassium 3.9 mmol/L (3.3-5.1); Sodium 140 mmol/L (135-145); TSH reflex Free T4 0.64 uIU/mL (0.32-4.0); Total Iron Binding Capacity 297 mcg/dL (228-428); Total Protein 8.2 g/dL (6.5-8.0); Triglycerides 36 mg/dL (<150); Unsaturated Iron Binding 278 ug/dL; Vitamin D 25-OH Total 32.3 ng/mL (>30)
[2024-03-30 11:19] LABS: Folate 10.9 ng/mL (> or = 4.0); Vitamin B12 768 pg/mL (200-900)
[2024-04-04 02:59] LABS: Zinc 68 mcg/dL (60-130)
[2024-04-04 18:18] LABS: Vitamin A 49 mcg/dL (38-98)
[2024-04-07 06:18] LABS: Vitamin B1 8 nmol/L (8-30)
== END 2024-03-30 09:23 | disposition home or self-care (01) ==
LOC: HO.LAB 09:22
PROVIDERS: PCP Nurse Practitioner; Visit Provider Surgery
DX: E66.01 Morbid (severe) obesity due to excess calories (principal); E28.2 Polycystic ovarian syndrome; J45.909 Unspecified asthma, uncomplicated; M32.9 Systemic lupus erythematosus, unspecified
CPT/HCPCS: 36415; 71046; 80053; 80061; 82306; 82607; 82728; 82746; 83036; 83525; 83540; 84425; 84443; 84590; 84630; 85025; 86140; 93005

== ENCOUNTER → 2024-03-30 10:03 | Outpatient (BNV) | payer MEDICAID, SELFPAY | PROVIDERS: PCP Nurse Practitioner; Visit Provider Radiology Diagnostic Radiology | DX: J45.909 Unspecified asthma, uncomplicated (principal) | CPT/HCPCS: 71046 ==

== ENCOUNTER 2024-04-05 10:14 | Outpatient (REF) | payer MEDICAID, SELFPAY ==
--- NOTE | ~2024-04-05 | US_ITS ---
EXAMINATION: US COMPLETE ABDOMEN WITH LIVER ELASTOGRAPHY CLINICAL INFORMATION: Obesity. COMPARISON: CT abdomen and pelvis dated 07/28/2011. TECHNIQUE: Real-time imaging of the abdominal viscera. Noninvasive ultrasound liver fibrosis assessment is performed using Rylan ElastPQ point quantification shear wave elastography (pSWE) with a C5-2 MHz transducer. Multiple elastography samples are obtained. FINDINGS: PANCREAS: Normal. The visualized pancreatic head and body are normal in appearance. The remainder of the pancreas is obscured from visualization by the overlying bowel gas. Adjacent to the pancreatic head, a 3.8 x 1.0 x 1.4 cm reniform lymph node is seen. ABDOMINAL AORTA: The proximal, middle, and distal aortic segments are normal in caliber. INFERIOR VENA CAVA: Visualized portions are normal. LIVER: The liver demonstrates increased size, and normal contour and echogenicity. No focal lesion or intrahepatic biliary duct dilatation. The right lobe measures 19.6 cm in length. The left lobe measures 10.5 cm in length. Portal flow is towards the liver (hepatopetal). Shear wave liver elastography median stiffness is 0.92 m/s (reference: normal median stiffness is 1.3 m/s or less). IQR/median stiffness to assess sampling precision is 0.24 (reference: good quality data set is IQR/median stiffness of 0.15 or less). GALLBLADDER: There is cholelithiasis. The gallbladder is physiologically distended without evidence of polyps, wall thickening or pericholecystic fluid. COMMON BILE DUCT: Normal in caliber measuring 0.3 cm in diameter. RIGHT KIDNEY: Normal. No hydronephrosis. No renal calculi or focal parenchymal lesions. The kidney measures 13.2 cm in maximum dimension. LEFT KIDNEY: Normal. No hydronephrosis. No renal calculi or focal parenchymal lesions. The kidney measures 11.7 cm in maximum dimension. SPLEEN: Normal. The spleen measures 9.1 cm in maximum dimension. FREE FLUID: None. US/US abdomen comp w elastography IMPRESSION: 1. There is generalized increase in hepatic echotexture, consistent with fatty infiltration or hepatocellular disease. Please correlate clinically. No focal hepatic mass or intrahepatic biliary dilatation is seen. 2. There is hepatomegaly. 3. Liver elastography: Measurements are consistent with a high probability of normal liver stiffness. 4. There is cholelithiasis. 5. A pathologically enlarged lymph node is seen adjacent to the pancreatic head, not evident on the CT examination of 07/28/2011. If relevant to patient management, this could be further characterized with a CT examination of the abdomen with intravenous contrast. REFERENCE: Society of Radiologists in Ultrasound Liver Stiffness Thresholds (2020): LIVER STIFFNESS THRESHOLDS: *Liver Stiffness equal or less than 1.3 m/s: High probability of being normal. *Liver Stiffness less than 1.7 m/s: In the absence of other known clinical signs, rules out compensated advanced chronic liver disease. *Liver Stiffness 1.7-2.1 m/s: Suggestive of compensated advanced chronic liver disease but need further test for confirmation. *Liver Stiffness over 2.1 m/s: Rules in compensated advanced chronic liver disease. *Liver Stiffness over 2.4 m/s: Suggestive of clinically significant portal hypertension. QUALITY OF DATA SET: *IQR/Median value equal or less than 0.15 implies a quality data set. *IQR/Median value over 0.15 implies a poor quality data set. SIGNIFICANT CHANGE FROM PRIOR EXAM: Significant change if liver stiffness measurement is 10% or greater from prior exam. OTHER CONSIDERATIONS: The stage of liver fibrosis may be overestimated in the setting of acute hepatitis, liver inflammation, elevated liver function tests, hepatic vascular congestion, obstructive cholestasis, non-fasting state, and infiltrative diseases such as amyloidosis and lymphoma. In some patients with NAFLD, the liver stiffness thresholds for compensated advanced chronic liver disease may be lower. In causes other than viral hepatitis and NAFLD, liver stiffness thresholds are not well established. Electronically signed by: Blayne Levin MD 04/06/2024 01:50 PM EDT
== END 2024-04-05 10:15 | disposition home or self-care (01) ==
LOC: HO.US 10:14
PROVIDERS: Visit Provider Surgery
DX: E66.01 Morbid (severe) obesity due to excess calories (principal); E28.2 Polycystic ovarian syndrome; J45.909 Unspecified asthma, uncomplicated; M32.9 Systemic lupus erythematosus, unspecified
CPT/HCPCS: 76700; 76981

== ENCOUNTER → 2024-04-11 10:08 | Outpatient (BNVA) | payer MEDICAID, SELFPAY | PROVIDERS: PCP Nurse Practitioner; Visit Provider Counselor Mental Health ==

== ENCOUNTER → 2024-04-11 10:08 | Outpatient (AMB) | payer OTHER, SELFPAY ==
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
== END ==
PROVIDERS: PCP Nurse Practitioner; Visit Provider Counselor Mental Health
DX: F43.23 Adjustment disorder with mixed anxiety and depressed mood (principal); E66.01 Morbid (severe) obesity due to excess calories
CPT/HCPCS: 90834

== ENCOUNTER 2025-05-31 13:09 | Emergency (ER) | payer MEDICAID, SELFPAY ==
--- NOTE | ~2025-05-31 | XR_ITS ---
EXAMINATION: XR SHOULDER, LEFT CLINICAL INFORMATION: pain COMPARISON: None available. TECHNIQUE: AP external rotation, Grashey, scapular Y, and axillary views of the left shoulder. FINDINGS: The AC joint is intact. There is mild degenerative change with small marginal osteophytes. Small calcific densities are present in the soft tissues adjacent to greater tuberosity, likely within infraspinatus tendon. There is no dislocation. No other abnormality is evident. XR/XR shoulder LT min 2V IMPRESSION: Suspected mild changes related to calcific tendinitis probably involving infraspinatus tendon. Mild AC joint arthropathy. Electronically signed by: Dallin Penny MD 05/31/2025 02:17 PM EST
--- NOTE | ~2025-05-31 | XR_ITS ---
EXAMINATION: XR FOREARM, LEFT CLINICAL INFORMATION: pain swelling COMPARISON: None available. TECHNIQUE: AP and lateral views of the left forearm were obtained. FINDINGS: Amorphous calcific density is visible in the soft tissues adjacent to the lateral humeral epicondyle. Soft tissues are otherwise unremarkable. No fracture is identified. XR/XR forearm LT 2V IMPRESSION: Amorphous calcific density in the soft tissues adjacent the lateral humeral epicondyle could be related to calcific tendinitis or early changes from enthesopathy. Electronically signed by: Dallin Penny MD 05/31/2025 02:15 PM EST
--- NOTE | ~2025-05-31 | XR_ITS ---
EXAMINATION: XR ELBOW, LEFT CLINICAL INFORMATION: Left elbow pain COMPARISON: None available. TECHNIQUE: AP, lateral, and oblique views of the left elbow. FINDINGS: The bones and soft tissues are normal. No fracture or joint effusion. Alignment is anatomic. Joint spaces are maintained. XR/XR elbow LT 2V IMPRESSION: Normal left elbow. Electronically signed by: Harpreet Schwartz MD 05/31/2025 02:12 PM KE[facility]
--- NOTE | ~2025-05-31 | US_ITS ---
EXAMINATION: US TRIPLEX UPPER EXTREMITY, LEFT CLINICAL INFORMATION: Left upper extremity swelling and pain COMPARISON: None available. TECHNIQUE: Color-flow triplex imaging with spectral analysis and compression Doppler was performed on the left upper extremity. FINDINGS: The left internal jugular, subclavian, and axillary veins are patent and free of thrombus. The imaged segment of the left brachiocephalic vein is patent. Spectral doppler waveforms are normal. The brachial, basilic, cephalic, radial, and ulnar veins are patent and compressible. In the soft tissues anterior to the left internal jugular vein in the mid-neck, there is an 11 x 4 x 9 mm anechoic lesion without blood flow on color Doppler. US/US venous duplex UE LT IMPRESSION: No evidence of deep venous thrombosis involving the left upper extremity. Nonspecific 11 x 4 x 9 mm cystic lesion in the mid left neck (Level III) located deep to sternocleidomastoid muscle and superficial to internal jugular vein. The lesion is likely incidental in nature. Electronically signed by: Dallin Penny MD 05/31/2025 03:41 PM EST
--- NOTE | ~2025-05-31 | XR_ITS ---
EXAMINATION: XR HAND, LEFT CLINICAL INFORMATION: hand pain. swelling COMPARISON: December 29, 2013 TECHNIQUE: PA, lateral, and oblique views of the left hand. FINDINGS: On the prior examination, there was a healing fracture involving the neck region of the fifth metacarpal. On the current study, there is minimal irregularity with small cystic area in the dorsal neck with adjacent soft tissue ossification likely related to the previous fracture. No acute fracture is identified. There is linear density in the soft tissues radial side of first metacarpal on the lateral view. It measures approximately 2 x 10 mm. Previously, the density was visualized on the PA view in the space between the base of the first and second metacarpals. XR/XR hand LT 2V IMPRESSION: 2 x 10 mm foreign body is present in the thenar region of the hand on the radial of the first metacarpal. It has migrated since the prior examination where it projected between the base of the first and second metacarpals. Healed boxer's fracture. No acute abnormality. Electronically signed by: Dallin Penny MD 05/31/2025 02:23 PM [facility]
[2025-05-31 13:32] VITALS: BP 136/63; PULSE 82; RESP 20; TEMP 36.3; O2SAT 98; BMI 52.5
--- NOTE | 2025-05-31 13:37 | ECG_ITS ---
Test Reason : l shoulder pain Blood Pressure : */* mmHG Vent. Rate : 85 BPM Atrial Rate : 85 BPM P-R Int : 126 ms QRS Dur : 98 ms QT Int : 360 ms P-R-T Axes : 41 44 35 degrees QTcB Int : 428 ms Normal sinus rhythm Normal ECG When compared with ECG of 30-Mar-2024 09:52, No significant change was found Referred By: Michael Chatterjee Electronically Signed By: AMY MALLORY
--- NOTE | 2025-05-31 13:37 | ED.EXTPRO ---
HPI - Extremity Problem General Chief complaint: Extremity Injury, Upper Stated complaint: Swelling Of Limb Time Seen by Provider: 05/31/25 16:00 Source: patient Mode of arrival: ambulatory Limitations: no limitations History of Present Illness ED Provider: Michael Chatterjee HPI Narrative: 34-year-old female history of lupus presents to ED for left upper extremity pain more in the shoulder and left elbow pain that is worse on movement. Patient states left arm seems more swollen than right and feels heavy. Patient states it has been occurring for 1 week. Patient denies any chest pain or shortness of breath. Related Data Home Medications ?Medication ?Instructions ?Recorded ?Confirmed albuterol sulfate 90 mcg/actuation 2 puff inhalation Q6H PRN 03/17/24 03/17/24 aerosol inhaler hydroxychloroquine 200 mg tablet 200 mg PO BID 03/17/24 03/17/24 (Plaquenil) Previous Rx's ?Medication ?Instructions ?Recorded naproxen 500 mg tablet 500 mg PO BID PRN pain 7 days #14 05/31/25 tabs prednisone 20 mg tablet 40 mg (2 x 20 mg) PO DAILY 5 days 05/31/25 #10 tabs Allergies Allergy/AdvReac Type Severity Reaction Status Date / Time nut - unspecified (nut) Allergy Severe THROAT Verified 05/31/25 13:35 ITCHY Sulfa (Sulfonamide Allergy Intermediate SULFA MED Verified 05/31/25 13:35 Antibiotics) (SULFA MIGRAINE (SULFONAMIDE ANTIBIOTICS)) penicillin V Allergy Unknown rash Verified 05/31/25 13:35 Penicillins (PENICILLINS) Allergy Unknown HIVES Verified 05/31/25 13:35 SHELLFISH Allergy Intermediate SWELLING Uncoded 03/17/24 09:06 ENVIRONMENTAL Allergy Unknown RUNNY NOSE Uncoded 03/17/24 09:06 Review of Systems Review of Systems: Left upper extremity pain Yes all other systems are reviewed and are negative PMFSH Past Medical History Medical History (Updated 06/01/25 @ 00:00 by Saul Bates) Morbid obesity Benign neoplasm of pituitary gland and craniopharyngeal duct Lupus Seasonal allergies Depression PCOS (polycystic ovarian syndrome) Asthma Surgical History (Updated 02/14/24 @ 11:13 by Yesica Santos CMA) Hx of section Hx of tonsillectomy Family History Family History (Updated 02/14/24 @ 10:36 by Yesica Santos CMA) Father Asthma Mother Fibromyalgia Thyroid disease Paternal Aunt Breast cancer Paternal Grandmother Breast cancer Maternal Aunt Breast cancer Family/Other FH: thyroid cancer Social History Social History (Updated 05/25/25 @ 14:08 by Frida Garcia [facility]) Alcohol intake: never Patient Tobacco Use Status: Current someday Tobacco user Cigarettes Per Day: 5 Substance Use Type: Marijuana Advance Directives: No Advance Directives Information Provided: No Do you have a plan to hurt others: No Plan Current occupational status: employed 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 Physical Exam Vital Signs: Vital Signs: Last Vital Signs Temp 0 F L 05/31/25 16:53 Pulse 79 05/31/25 16:53 Resp 20 05/31/25 16:53 BP 126/68 05/31/25 16:53 Pulse Ox 99 05/31/25 16:53 O2 Del Method Room Air 05/31/25 16:53 BMI result Body Mass Index 52.5 Const: General: cooperative, healthy appearing, comfortable, no acute distress, well developed, alert, awake and Physically active Orientation/consciousness: patient oriented x3 HEENT: Head: Yes normal to inspection, Yes No palpable skull fracture present, Yes normocephalic and Yes atraumatic Eyes: General: appearance normal, both eyes and all related structures Neck: Neck: Yes normal visual inspection, Yes full ROM, Yes no lymphadenopathy, Yes no meningeal signs, Yes trachea midline, Yes supple, No anterior neck swelling and No tender Chest: Chest palpation & inspection: normal inspection of the chest and normal palpation of entire chest wall Resp: Effort & Inspection: normal respiratory effort and able to speak in complete sentences Auscultation: clear to auscultation bilaterally Cardio: Jugular venous distension: no JVD Heart sounds: S1 normal heart sound present and S2 normal heart sound present GI: Inspection: Yes normal to inspection Palpation (GI): Soft to palpation, not firm, nontender, no guarding and not rigid : General: Yes no CVA tenderness Back/Spine/Pelvis: Back: no CVA tenderness and No back tenderness Skin: General skin exam: no rashes or lesions noted, elasticity normal and turgor normal Neuro: General: patient oriented x3, gait normal, tone normal, moves all extremities, Normal light touch and pain sensation, no meningeal signs, no focal motor deficits, CN's II-XI intact bilaterally and normal sensation to monofilament Extrem: General: Yes normal to inspection, Yes full ROM and Yes capillary refill normal Shoulder/upper arm images:  1. Positive for tenderness on palpation. Negative for swelling, ecchymosis, deformity, erythema, crepitus, or stiffness. Rest of extremity normal. Vascular motor neuro exam intact 2. Positive for tenderness on palpation. Negative for swelling, ecchymosis, deformity, erythema, crepitus, or stiffness. Rest of extremity normal. Vascular motor neuro exam intact Psych: Appearance: grossly normal, well kempt and not disheveled Course Course Course Narrative: RME; 34 yold female presents to the ED for left arm pain, swelling, and heaviness for about 3 days. Patient states no trauma. Patient states history of lupus so she is high risk for blood clot. Patient denies any fever or chills. Patient denies any blunt trauma. Patient states pain is most in the antecubital. Labs ultrasound x-ray ordered Medical Decision Making Medical Decision Making [facility] Narrative: 34-year-old female presents to ED for left upper extremity pain without any trauma. X-ray of shoulder and elbow shows tendinitis. Ultrasound negative for DVT but does shows benign cystic or mass and left sternocleidomastoid. Labs are reassuring EKG troponin negative. Case was discussed with Dr. See in regards ultrasound reading of neck cystic or mass and he states that can be followed as outpatient. On exam patient has no neck swelling, drooling chest pain or shortness of breath. Patient explained worrisome signs informed return to the ED immediately. Patient given copy of images for follow up with PCP including neck mass/cyst result. Differential Diagnosis Differential Diagnoses: The differential diagnosis associated with the presentation includes (DVT, cellulitis, lymphangitis, osteomyelitis, fracture, dislocation) Admission/Observation Consideration of admission/observation: Escalation of care including admission/observation considered Lab Data [facility] Lab Attestation statement: I reviewed the patient's lab results. 05/31/25 14:21 05/31/25 14:21 Labs: Lab Results 05/31/25 Range/Units 14:21 WBC 8.1 (4.8-10.8) X10*3/uL RBC 5.25 (4.20-5.50) X10*6/uL Hgb 12.4 (12.0-16.0) g/dl Hct 39.1 (37.0-47.0) % MCV 74.5 L (80.0-98.0) fL MCH 23.6 L (27.0-33.0) pg MCHC 31.7 (31.0-35.0) g/dl RDW 16.2 H (11.0-16.0) % Plt Count 199 (160-400) X10*3/uL MPV Not Reportable Immature Gran % (Auto) Cancelled Neut % (Auto) Cancelled Lymph % (Auto) Cancelled [place] % (Auto) Cancelled Eos % (Auto) Cancelled Baso % (Auto) Cancelled Lymph # (Auto) Cancelled [place] # (Auto) Cancelled Eos # (Auto) Cancelled Baso # (Auto) Cancelled Abs Immat Gran (auto) Cancelled Absolute Neuts (auto) Cancelled Absolute Nucleated RBC 0.020 H (0.0-0.012) X10*3/uL Nucleated RBC % (auto) 0.2 (0.0-0.2) /100WBC Neutrophils % (Manual) 67 (45-73) % Band Neutrophils % 0 L (3-5) % Lymphocytes % (Manual) 28 (20-40) % Monocytes % (Manual) 5 (2-11) % Abs Neuts (Manual) 5.4 (2.0-8.3) X10*3/uL Lymphocytes # (Manual) 2.3 (1.2-4.9) X10*3/uL Monocytes # (Manual) 0.4 (0.1-1.2) X10*3/uL Platelet Estimate NORMAL (NORMAL) Plt Morphology Comment NORMAL RBC Morphology NOTED Ovalocytes 1+ (5-14) /OIF Roya Cells 3+ (>5) /OIF Schistocytes 1+ (0-2) /OIF ESR 16 (0-20) MM/HR PT 11.9 (11.2-13.5) SEC INR 1.0 (0.9-1.1) APTT 23.3 L (26.7-34.1) SEC Sodium 140 (135-145) mmol/L Potassium 4.2 (3.3-5.1) mmol/L Chloride 109 H (96-108) mmol/L Carbon Dioxide 22 (22-29) mmol/L Anion Gap 13 (12-20) BUN 13 (9-16) mg/dL Creatinine 0.59 (0.5-1.4) mg/dL Estim Creat Clear Calc 174.3 Estimated GFR > 60 Random Glucose 90 (60-115) mg/dL Uric Acid 4.2 (2.4-5.7) mg/dL Calcium 8.9 (8.4-10.2) mg/dL Total Bilirubin 0.3 (0.0-1.0) mg/dL AST 43 H (5-31) U/L ALT 48 H (0-31) U/L Alkaline Phosphatase 78 (39-117) U/L Troponin I High Sens < 2.7 (<3.5-17.0) ng/L C-Reactive Protein 0.83 H (< or = 0.50) mg/dL Total Protein 7.5 (6.5-8.0) g/dL Albumin 4.0 (3.5-5.0) g/dL Independent Interpretation I performed an independent interpretation of an: EKG (Non diagnostic) and Plain X-Ray Radiology Impression Discussion of test interpretation with radiology: I have reviewed the radiologist's reading. Independent Historian Clinical information obtained from an independent historian. History obtained from or confirmed by: Other (patient) Discharge Plan Discharge Clinical Impression: Infraspinatus tendinitis, Epicondylitis, lateral (tennis elbow) Patient Disposition: Home, Self-Care Instructions: Tennis Elbow (ED), Rotator Cuff Tendinitis (ED) Additional Instructions: Recommend follow up with primary care provider. Return to the ED immediately for any chest pain, shortness of breath, neck swelling, drooling, change in bed, bluish black discoloration, red streaks, fever, chills, or any other concerning symptoms. Ordering Physician: Michael Chatterjee Date of Service: 05/31/25 Procedure(s): US venous duplex UE Accession Number(s): [id number] cc: Michael Chatterjee; Taylor Harrison APRN~ Reason for Exam: Left upper extremity swelling/pain EXAMINATION: US TRIPLEX UPPER EXTREMITY, LEFT CLINICAL INFORMATION: Left upper extremity swelling and pain COMPARISON: None available. TECHNIQUE: Color-flow triplex imaging with spectral analysis and compression Doppler was performed on the left upper extremity. FINDINGS: The left internal jugular, subclavian, and axillary veins are patent and free of thrombus. The imaged segment of the left brachiocephalic vein is patent. Spectral doppler waveforms are normal. The brachial, basilic, cephalic, radial, and ulnar veins are patent and compressible. In the soft tissues anterior to the left internal jugular vein in the mid-neck, there is an 11 x 4 x 9 mm anechoic lesion without blood flow on color Doppler. US/US venous duplex UE LT IMPRESSION: No evidence of deep venous thrombosis involving the left upper extremity. Nonspecific 11 x 4 x 9 mm cystic lesion in the mid left neck (Level III) located deep to sternocleidomastoid muscle and superficial to internal jugular vein. The lesion is likely incidental in nature. Electronically signed by: Dallin Penny MD 05/31/2025 03:41 PM EST RP Ordering Physician: Michael Chatterjee Date of Service: 05/31/25 Procedure(s): XR shoulder LT min 2V Accession Number(s): [id number] cc: Michael Chatterjee; Taylor Harrison CHIP APPLYING MACHINE TENDER~ Reason for Exam: pain EXAMINATION: XR SHOULDER, LEFT CLINICAL INFORMATION: pain COMPARISON: None available. TECHNIQUE: AP external rotation, Grashey, scapular Y, and axillary views of the left shoulder. FINDINGS: The AC joint is intact. There is mild degenerative change with small marginal osteophytes. Small calcific densities are present in the soft tissues adjacent to greater tuberosity, likely within infraspinatus tendon. There is no dislocation. No other abnormality is evident. XR/XR shoulder LT min 2V IMPRESSION: Suspected mild changes related to calcific tendinitis probably involving infraspinatus tendon. Mild AC joint arthropathy. Electronically signed by: Dallin Penny MD 05/31/2025 02:17 PM EST RP Ordering Physician: Michael Chatterjee Date of Service: 05/31/25 Procedure(s): XR forearm LT 2V Accession Number(s): [id number] cc: Michael Chatterjee; Taylor Harrison APRN~ Reason for Exam: pain swelling EXAMINATION: XR FOREARM, LEFT CLINICAL INFORMATION: pain swelling COMPARISON: None available. TECHNIQUE: AP and lateral views of the left forearm were obtained. FINDINGS: Amorphous calcific density is visible in the soft tissues adjacent to the lateral humeral epicondyle. Soft tissues are otherwise unremarkable. No fracture is identified. XR/XR forearm LT 2V IMPRESSION: Amorphous calcific density in the soft tissues adjacent the lateral humeral epicondyle could be related to calcific tendinitis or early changes from enthesopathy. Electronically signed by: Dallin Penny MD 05/31/2025 02:15 PM [facility] Prescriptions: New naproxen 500 mg tablet 500 mg PO BID PRN (Reason: pain) 7 Days Qty: 14 0RF prednisone 20 mg tablet 40 mg PO DAILY 5 Days Qty: 10 0RF No Action albuterol sulfate 90 mcg/actuation HFA aerosol inhaler 2 puff inhalation Q6H PRN hydroxychloroquine [Plaquenil] 200 mg tablet 200 mg PO BID Referrals: [facility] [Provider Group, Orthopedics] - 2 days Referral Note: Shoulder elbow tendinitis Clinical Impression: Infraspinatus tendinitis; Epicondylitis, lateral (tennis elbow) Taylor Harrison APRN [Primary Care Provider, Internal Medicine] - 2 days Referral Note: Elbow and shoulder tendinitis. Neck mass Clinical Impression: Infraspinatus tendinitis; Epicondylitis, lateral (tennis elbow) Stand Alone Forms: Work/School Release Interventions: ED Discharge Assessment Last Done: 05/31/25 16:53 Discharge Date/Time: 05/31/25 16:54 Print Language: Palauan
[2025-05-31 14:48] LABS: Hemoglobin 12.4 g/dl (12.0-16.0); INTERNATIONAL NORM RATIO 1.0 (0.9-1.1); Prothrombin Time 11.9 SEC (11.2-13.5)
[2025-05-31 14:50] LABS: Hematocrit 39.1 % (37.0-47.0); Mean Corpuscular HGB Conc 31.7 g/dl (31.0-35.0); Mean Corpuscular Hemoglobin 23.6 pg (27.0-33.0); Mean Corpuscular Volume 74.5 fL (80.0-98.0); NRBC Abs Auto 0.020 X10*3/uL (0.0-0.012); NRBC Pct Auto 0.2 /100WBC (0.0-0.2); PLT ABN DIST 1; PLT CLUMP 1; Red Blood Count 5.25 X10*6/uL (4.20-5.50); White Blood Count 8.1 X10*3/uL (4.8-10.8)
[2025-05-31 14:52] LABS: Partial Thromboplastin Time 23.3 SEC (26.7-34.1)
[2025-05-31 15:00] LABS: Alanine Aminotransferase 48 U/L (0-31); Albumin Level 4.0 g/dL (3.5-5.0); Alkaline Phosphatase 78 U/L (39-117); Anion Gap 13 (12-20); Aspartate Amino Transferase 43 U/L (5-31); Blood Urea Nitrogen 13 mg/dL (9-16); Calcium 8.9 mg/dL (8.4-10.2); Carbon Dioxide 22 mmol/L (22-29); Chloride 109 mmol/L (96-108); Creatinine Clr Calc Pharmacy 174.3; Estimated Glomerular Filt Rate > 60; Potassium 4.2 mmol/L (3.3-5.1); Sodium 140 mmol/L (135-145); Total Protein 7.5 g/dL (6.5-8.0); Uric Acid 4.2 mg/dL (2.4-5.7)
[2025-05-31 15:05] LABS: Troponin-I High Sensitivity < 2.7 ng/L (<3.5-17.0)
[2025-05-31 15:23] LABS: Erythrocyte Sedimentation Rate 16 MM/HR (0-20)
[2025-05-31 15:36] LABS: Platelet Count 199 X10*3/uL (160-400)
[2025-05-31 15:38] LABS: Band Neutrophils Percent 0 % (3-5); Burr Cells 3+ (>5) /OIF; Lymphocytes Absolute Manual 2.3 X10*3/uL (1.2-4.9); Lymphocytes Percent Manual 28 % (20-40); Monocytes Absolute Manual 0.4 X10*3/uL (0.1-1.2); Monocytes Percent Manual 5 % (2-11); Neutrophils Absolute Manual 5.4 X10*3/uL (2.0-8.3); Neutrophils Percent Manual 67 % (45-73); Ovalocytes 1+ (5-14) /OIF; RBC Morphology NOTED; Schistocytes 1+ (0-2) /OIF
[2025-05-31 16:53] VITALS: BP 126/68; PULSE 79; RESP 20; TEMP -17.7; TEMP 0; O2SAT 99
--- OUTSIDE RECORDS SUMMARY | 2025-05-31 20:57 | XMS_ITS | Encounter Summary ---
Author Organization [employer] Address [address] [place] [address] [address] [place] [address] Care Team Providers Care Fitness Specialist Name Role Phone [facility] Primary Care Provider [phone] Renny Toure Unavailable Carla Castorena Unavailable Encounter Details Date Type Department Care Team (Late st Contact Info) Description 06/12/2024 Orders Only [facility] [address] [place] [address] [place], [place], [facility] [address] [place] [address] Social History Tobacco Use Types Packs/Day Years Used Date Smoking Tobacco: Never Smokeless Tobacco: Never Alcohol Use Standard Drinks/Week Comments Never 0 (1 standard drink = 0.6 oz pur e alcohol) Housing Stability Answer Date Recorded What is your housing situation today? I have rohan choi 06/09/[address] you li ve. Do you have problems with any of the following? None of the above 06/09/2023 Food Insecurity Answer Date Recorded Within the past 12 months, y ou worried that your food would run out before you got money to buy more: Sometimes True 2022 Within the past 12 months,th e food you bought just didn't last and you didn't have enough money to get more: Sometimes True 06/09/2023 Transportation Answer Date Recorded In the past 12 months, has l ack of transportation kept you from medical appts, meetings, work or from getting things needed for daily living? No 06/09/2023 Utilities Answer Date Recorded In the past 12 months, has t he electric, gas, oil or water company threatened to shut off services in your home? Yes 06/09/2023 Comments No Sex and Gender Information Value Date Recorded Sex Assigned at Female 05/11/2022 10:18 AM EDT Legal Sex Female 10:18 AM EDT Gender Identity Female 05/11/2022 10:18 AM EDT Sexual Orientation Straight 05/11/2022 10 :18 AM EDT documented as of this encounter Plan of Treatment Not on file documented as of this encounter Procedures Procedure Name Priority Date/Time Associated Diagnosis Comments XR CHEST 2 VIEWS Routine 03/30/2024 10:48 AM EDT documented in this encounter Results * XR Chest 2 Views (03/30/2024 10:48 AM EDT) Anatomical Region Laterality Modality Chest Radiographic Maggi ging Francoise MACDONALD IMG XR PROCEDURES Final R esult documented in this encounter Visit Diagnoses Not on filedocumented in this encounter Care Teams Fitness Specialist Relationship Specialty Start Date End Date Francoise Harrison FNP [address] [place] [address] PCP - General Family Medicine 06/09/23 Renny Toure 11/27/24 01/26/25 Carla Castorena 12/07/24 04/18/25 documented as of this encounter
--- OUTSIDE RECORDS SUMMARY | 2025-05-31 20:57 | XMS_ITS | Clinical Summary ---
Author Organization [employer] Address [address] [facility] 7 [place] [address] Care Team Providers Care Tie Binder Name Role Phone [facility] Primary Care Provider [phone] Allergies Active Allergy Reactions Criticality Noted Date Comments Penicillin G 07/30/2023 Sulfa Antibiotics 07/30/2023 Medications clobetasol (Temovate) 0.05 % ointmentIndicat ions:Discoid lupus Apply topically 2 times daily. 60 g 4 Active metFORMIN XR (Glucophage-XR) 500 MG 24 hr tabletIndicatio ns:PCOS (polycystic ovarian syndrome) TAKE 1 TABLET (500 MG) BY MOUTH WITH BREAKFAST AND WITH EVENING MEAL. DO NOT CRUSH, CHEW, OR SPLIT. 180 tablet 3 4 Active Active Problems Problem Noted Date Diagnosed Date PCOS (polycystic ovarian syndrome) 07/30/2023 07/30/2023 Discoid lupus 07/30/2023 07/30/2023 Pituitary adenoma ([facility]) 07/30/202307/12 Morbid obesity (CMS/[facility]) 07/30/2023 024 Encounters Date Type Department Care Team Description 05/31/2025 Orders Only [facility] Information Management [address] [place] [address] [place], [place] [facility] 04/18/2025 Patient Outreach [facility] (C3) Department [address] [phone] Carla Castorena c3 care management (Notification of Closed RN Care Management //C3 Member Dylon Manoj 1990 has closed services as Declined to participate in program. /Member transferred to Other:declined//software qa manager: Carla Castorena clinical childcare attendant) 03/15/2025 Patient Outreach [facility] (C3) Department [address] [place] [phone] RaffaeleMistyCarla 03/01/2025 Patient Outreach [facility] (C3) Department [address] [place] [phone] Carla Castorena from Last 3 Months Immunizations Immunization Administration Dates Next Due Tdap 12/30/2022 Family History Medical History Relation Name Comments No Known Problems Son 1 No Known Problems Son 2 Relation Name Status Comments Son 1 Alive Son 2 Alive Social History Tobacco Use Types Packs/Day Years [...] t he electric, gas, oil or water [employer] threatened to shut off services in your home? Yes 06/09/2023 Comments No Sex and Gender Information Value Date Recorded Sex Assigned at Female 05/11/2022 10:18 AM EDT Legal Sex Female 10:18 AM EDT Gender Identity Female 05/11/2022 10:18 AM EDT Sexual Orientation Straight 05/11/2022 10 :18 AM EDT Last Filed Vital Signs Vital Sign Reading Time Taken Comments Blood Pressure 124/78 07/30/2023 2:11 PM EST Pulse 82 07/30/2023 2:11 PM EST Temperature 36.2 C (97.1 F) 07/30/2023 2:11 PM EST Respiratory Rate - - Oxygen Saturation 97% 07/30/2023 2:11 PM EST Inhaled Oxygen Concentration - - Weight 126 kg (276 lb 12.8 oz) 07/30/2023 2:11 P M EST Height 157.5 cm (5' 2 ) 07/30/2023 2:11 PM EST Body Mass Index 50.63 07/30/2023 2:11 PM EST Plan of Treatment Health Maintenance Due Date Last Done Comments Depression Screening 1990 Lipid Panel 1990 Disability Screening 1990 Alcohol/Substance Use Screening 2002 Family Planning (PISQ) 2005 HPV Vaccines (1 - 3-dose series) 2005 Hepatitis C Screening 2008 Hepatitis B Vaccines (1 of 3 - 19+ 3-dose series) 2009 Pneumococcal Vaccine: Pediat rics (0 to 5 Years) and At-Risk Patients (6 to 49) Years (1 of 2 - PCV) 2009 HPV/Cotest 2020 SDOH Screening 03/08/2024 03/08/2023 Tobacco Screening 07/30/2024 07/30/2023 COVID-19 Vaccine (1 - 2024-2 6 season) 2025 Influenza Vaccine (#1) 2025 Cervical Cancer Screening 09/27/2026 Pap Smear 09/27/2026 09/28/2023 DTaP/Tdap/Td Vaccines (2 - T d or Tdap) 12/30/2032 12/30/2022 Zoster Vaccines (1 of 2) 2040 RSV Patients and Pa tients Aged 60 years or older (1 - 1-dose 75+ series) 2065 HIV Screening Completed 08/14/2022 HIB Vaccines Aged Out No longer eligi ble based on patient's age to complete this topic Hepatitis A Vaccines Aged Out No long er eligible based on patient's age to complete this topic IPV Vaccines Aged Out No longer eligi ble based on patient's age to complete this topic Meningococcal B Vaccine Aged Out No l onger eligible based on patient's age to complete this topic Meningococcal Vaccine Aged Out No martell alexus eligible based on patient's age to complete this topic RSV under 20 months Aged Out No longe r eligible based on patient's age to complete this topic Rotavirus Vaccines Aged Out No longer eligible based on patient's age to complete this topic Procedures Procedure Name Priority Date/Time Associated Diagnosis Comments XR HAND 2 VW LEFT Routine 05/31/2025 XR SHOULDER 2 OR MORE VIEWS LEFT Routine 05/31/2025 XR FOREARM 2 VIEWS LEFT Routine 05/31/2025 XR ELBOW 2 VW LEFT Routine 05/31/2025 AMB REFERRAL TO DERMATOLOGY Routine 04/18/2025 Routine general medical examination at health care facility AMB REFERRAL TO RHEUMATOLOGY Routine 03/06/2025 Discoid lupus HM PAP/HPV Routine 09/28/2023 3:36 PM EDT HIV ANTIBODY/ANTIGEN, 4TH GENERATION Routine 08/14/2022 from Last 3 Months or Most Recently Relevant to Health Maintenance Results * XR FOREARM 2 VIEWS LEFT (05/31/2025) Anatomical Region Laterality Modality Radiographic Maggi ging Result [facility] IMG XR PROCEDURES Final R esult * XR SHOULDER 2 OR MORE VIEWS LEFT (05/31/2025) Anatomical Region Laterality Modality Radiographic Maggi ging Result [facility] IMG XR PROCEDURES Final R esult * XR HAND 2 VW LEFT (05/31/2025) Anatomical Region Laterality Modality Radiographic Maggi ging [facility] IMG XR PROCEDURES Final R esult * XR ELBOW 2 VW LEFT (05/31/2025) Anatomical Region Laterality Modality Radiographic Maggi ging [facility] IMG XR PROCEDURES Final R esult * Referral to Dermatology (04/18/2025) Result [facility] OUTPATIENT REFERRAL ORDER GLENYS Final Result * Referral to Rheumatology (03/06/2025) Result [facility] OUTPATIENT REFERRAL ORDER GLENYS Final Result * HM PAP/HPV (09/28/2023 3:36 PM EDT) [facility] HEALTH MAINTENANCE Final Result * HIV Antibody/Antigen, 4th Generation (08/14/2022) Blood [facility] LAB BLOOD ORDERABLES Edit ed Result - Final from Last 3 Months or Most Recently Relevant to Health Maintenance [place] [address] [place] [id number] C3 Care Teams Tie Binder Relationship Specialty Start Date End Date [facility] [address] [place] [id number] PCP - General Family Medicine 06/09/23
--- OUTSIDE RECORDS SUMMARY | 2025-05-31 20:57 | XMS_ITS | Encounter Summary ---
Author Organization [employer] Address [address] [place] [address] [address] [place] [address] Care Team Providers Care Director Of Diagnostic Imaging Name Role Phone [facility] Primary Care Provider [phone] Renny Toure Unavailable Carla Castorena Unavailable Encounter Details Date Type Department Care Team (Late st Contact Info) Description 01/19/2024 Orders Only [facility] [address] [place] [address] [facility] [address] [place] [address] Discoid lupus Social History Tobacco Use Types Packs/Day Years [...] Procedure Name Priority Date/Time Associated Diagnosis Comments AMB REFERRAL TO RHEUMATOLOGY Urgent 01/12/2024 Discoid lupus documented in this encounter Results * Referral to Rheumatology (01/12/2024) [facility] OUTPATIENT REFERRAL ORDER GLENYS Final Result documented in this encounter Visit Diagnoses Diagnosis Discoid lupus Lupus erythematosus documented in this encounter Care Teams Director Of Diagnostic Imaging Relationship Specialty Start Date End Date [facility] [address] [place] [address] PCP - General Family Medicine 06/09/23 Renny Toure 11/27/24 01/26/25 Carla Castorena 12/07/24 04/18/25 documented as of this encounter
--- OUTSIDE RECORDS SUMMARY | 2025-05-31 20:57 | XMS_ITS | Encounter Summary ---
Author Organization [employer] Address [address] [place] [address] 7 [place] [address] Care Team Providers Care Medical Assistant Cardiology Name Role Phone [facility] Primary Care Provider [phone] Encounter Details Date Type Department Care Team (Late st Contact Info) Description 05/31/2025 Orders Only [facility] [address] [place] [address] [place], [place], [facility] [address] [place] [address] Social History Tobacco Use Types Packs/Day Years Used Date Smoking Tobacco: Never Smokeless Tobacco: Never Alcohol Use Standard Drinks/Week Comments Never 0 (1 standard drink = 0.6 oz pur e alcohol) Housing Stability Answer Date Recorded What is your housing situation today? I have rohandavid choi 06/09/[address] you [...] Name Priority Date/Time Associated Diagnosis Comments XR FOREARM 2 VIEWS LEFT Routine 05/31/2025 XR SHOULDER 2 OR MORE VIEWS LEFT Routine 05/31/2025 XR HAND 2 VW LEFT Routine 05/31/2025 XR ELBOW 2 VW LEFT Routine 05/31/2025 documented in this encounter Results * XR HAND 2 VW LEFT (05/31/2025) Anatomical Region Laterality Modality Radiographic Maggi ging [facility] IMG XR PROCEDURES Final R esult * XR SHOULDER 2 OR MORE VIEWS LEFT (05/31/2025) Anatomical Region Laterality Modality Radiographic Maggi ging [facility] IMG XR PROCEDURES Final R esult * XR FOREARM 2 VIEWS LEFT (05/31/2025) Anatomical Region Laterality Modality Radiographic Maggi ging [facility] IMG XR PROCEDURES Final R esult * XR ELBOW 2 VW LEFT (05/31/2025) Anatomical Region Laterality Modality Radiographic Maggi ging [facility] IMG XR PROCEDURES Final R esult documented in this encounter Visit Diagnoses Not on filedocumented in this encounter Care Teams Medical Assistant Cardiology Relationship Specialty Start Date End Date [facility] [address] [place] [address] PCP - General Family Medicine 06/09/23 documented as of this encounter
--- OUTSIDE RECORDS SUMMARY | 2025-05-31 20:58 | XMS_ITS | Encounter Summary ---
Author Organization [employer] Address [address] [place] [address] [address] [place] [address] Care Team Providers Care Candle Wicker Name Role Phone [facility] Primary Care Provider [phone] Renny Toure Unavailable Carla Castorena Unavailable Encounter Details Date Type Department Care Team (Late st Contact Info) Description 05/10/2024 Orders Only [facility] [address] [place] [address] [place], [place], [facility] [address] [place] [address] Social History Tobacco Use Types Packs/Day Years [...] Procedure Name Priority Date/Time Associated Diagnosis Comments HM PAP/HPV Routine 09/28/2023 3:36 PM EDT documented in this encounter Results * HM PAP/HPV (09/28/2023 3:36 PM EDT) [facility] HEALTH MAINTENANCE Final Result documented in this encounter Visit Diagnoses Not on filedocumented in this encounter Care Teams Candle Wicker Relationship Specialty Start Date End Date [facility] [address] [place] [address] PCP - General Family Medicine 06/09/23 Renny Toure 11/27/24 01/26/25 Carla Castorena 12/07/24 04/18/25 documented as of this encounter
--- OUTSIDE RECORDS SUMMARY | 2025-05-31 20:58 | XMS_ITS | Encounter Summary ---
Author Organization [employer] Address [address] [place] [address] [address]t [place] [address] Care Team Providers Care Coal Yard Supervisor Name Role Phone [facility] Primary Care Provider [phone] Renny Toure Unavailable Carla Castorena Unavailable Encounter Details Date Type Department Care Team (Late st Contact Info) Description 08/02/2023 Orders Only [facility] [address] [place] [address] [place], [place], [facility] [address] [place] [address] Social History Tobacco Use Types Packs/Day Years [...] t he electric, gas, oil or water [employer] threatened to shut off services in your [...] Procedure Name Priority Date/Time Associated Diagnosis Comments CBC Routine 03/05/2023 HEPATITIS B SURFACE ANTIGEN Routine 08/14/2022 SYPHILIS SCREEN Routine 08/14/2022 HEPATITIS C ANTIBODY Routine 08/14/2022 HIV ANTIBODY/ANTIGEN, 4TH GENERATION Routine 08/14/2022 RUBELLA AB (IGG), IMMUNE STATUS Routine 08/14/2022 TSH Routine 08/14/2022 documented in this encounter Results * CBC (03/05/2023) Blood Venous blood specimen / Unknown [facility] LAB BLOOD ORDERABLES Edit ed Result - Final * HIV Antibody/Antigen, 4th Generation (08/14/2022) Blood [facility] LAB BLOOD ORDERABLES Edit ed Result - Final * Syphilis Screen (08/14/2022) Blood [facility] LAB BLOOD ORDERABLES Jennifer l Result * Rubella Antibody (IgG), Immune Status (08/14/2022) Blood Venous blood specimen / Unknown [facility] LAB BLOOD ORDERABLES Jennifer l Result * Hepatitis C Ab (08/14/2022) Blood [facility] LAB BLOOD ORDERABLES Jennifer l Result * Hepatitis B Surface Antigen (08/14/2022) Blood Venous blood specimen / Unknown [facility] LAB BLOOD ORDERABLES Jennifer l Result * TSH (08/14/2022) Blood Venous blood specimen / Unknown [facility] LAB BLOOD ORDERABLES Edit ed Result - Final documented in this encounter Visit Diagnoses Not on filedocumented in this encounter Care Teams Coal Yard Supervisor Relationship Specialty Start Date End Date [facility] [address] [place] [address] PCP - General Family Medicine 06/09/23 Renny Toure 11/27/24 01/26/25 Carla Castorena 12/07/24 04/18/25 documented as of this encounter
--- OUTSIDE RECORDS SUMMARY | 2025-05-31 20:58 | XMS_ITS | Encounter Summary ---
Author Organization [employer] Address [address] [place] [address] 7[address] [place] [address] Care Team Providers Care Bale Stacker Name Role Phone [facility] Primary Care Provider [phone] Renny Toure Unavailable Carla Castorena Unavailable Encounter Details Date Type Department Care Team (Late st Contact Info) Description 10/18/2023 Orders Only [facility] [address] [place] [address] [place], [place], [facility] [address] [place] [address] Social History Tobacco Use Types Packs/Day Years [...] Procedure Name Priority Date/Time Associated Diagnosis Comments COMPREHENSIVE METABOLIC PANEL Routine 08/26/2023 10:52 AM EST documented in this encounter Results * Comprehensive Metabolic Panel (08/26/2023 10:52 AM EST) Blood Venous blood specimen / Unknown [facility] LAB BLOOD ORDERABLES Jennifer l Result documented in this encounter Visit Diagnoses Not on filedocumented in this encounter Care Teams Bale Stacker Relationship Specialty Start Date End Date [facility] [address] [place] [address] PCP - General Family Medicine 06/09/23 Renny Toure 11/27/24 01/26/25 Carla Castorena 12/07/24 04/18/25 documented as of this encounter
--- OUTSIDE RECORDS SUMMARY | 2025-05-31 20:58 | XMS_ITS | Encounter Summary ---
Author Organization [employer] Address [address] [place] [address] 7 [place] [address] Care Team Providers Care Iron Worker Apprentice Name Role Phone Chelsea Turk Primary Care Provider [phone] Fracnoise Harrison INDUSTRIAL AUTOMATION SPECIALIST Primary Care Provider [phone] Renny Toure Unavailable Carla Castorena Unavailable Reason for Visit * Reason Onset Date Comments Appointment Request 05/25/2023 Encounter Details Date Type Department Care Team (Late st Contact Info) Description 05/25/2023 Telephone [facility] [address] [place], [place] [phone] Chelsea Turk FNP [address] [place], [place] [phone] Appointment Request Social History Tobacco Use Types Packs/Day Years Used Date Smoking Tobacco: Never Assessed Housing Stability Answer Date Recorded What is your housing situation today? I have rohan choi 05/17/[address] you li ve. Do you have problems with any of the following? None of the above 05/17/2023 Food Insecurity Answer Date Recorded Within the past 12 months, y ou worried that your food would run out before you got money to buy more: Sometimes True 2022 Within the past 12 months,th e food you bought just didn't last and you didn't have enough money to get more: Sometimes True 05/17/2023 Transportation Answer Date Recorded In the past 12 months, has l ack of transportation kept you from medical appts, meetings, work or from getting things needed for daily living? No 05/17/2023 Utilities Answer Date Recorded In the past 12 months, has t he electric, gas, oil or water company threatened to shut off services in your home? Yes 04/18/2023 Comments Unknown Sex and Gender Information Value Date Recorded Sex Assigned at Female 05/11/2022 10:18 AM EDT Legal Sex Female 10:18 AM EDT Gender Identity Female 05/11/2022 10:18 AM EDT Sexual Orientation Straight 05/11/2022 10 :18 AM EDT documented as of this encounter Miscellaneous Notes * Telephone Encounter - Dana Harris - 05/25/2023 2:44 PM EST Tc from pt requesting Derm Appt. No further details provided. documented in this encounter Plan of Treatment Not on file documented as of this encounter Visit Diagnoses Not on filedocumented in this encounter Care Teams Iron Worker Apprentice Relationship Specialty Start Date End Date Chelsea Turk FNP [address] [place] [address] PCP - General Family Medicine 04/21/22 06/08/23 Francoise Harrison FNP [address] [place] [address] PCP - General Family Medicine 06/09/23 Renny Toure 11/27/24 01/26/25 Carla Castorena 12/07/24 04/18/25 documented as of this encounter
--- OUTSIDE RECORDS SUMMARY | 2025-05-31 20:58 | XMS_ITS | Encounter Summary ---
Author Organization [employer] Address [address] [place] [address] [address] [place] [address] Care Team Providers Care Space Planner Name Role Phone Chelsea Turk COMMISSIONER OF INTERNAL REVENUE Primary Care Provider [phone] Francoise Harrison COMMISSIONER OF INTERNAL REVENUE Primary Care Provider [phone] Renny Toure Unavailable Carla Castorena Unavailable Encounter Details Date Type Department Care Team (Late st Contact Info) Description 05/25/2023 Telephone [facility] [address] [place], [place] [phone] Chelsea Turk FNP [address] [place], [place] [phone] Social History Tobacco Use Types Packs/Day Years [...] on filedocumented in this encounter Care Teams Space Planner Relationship Specialty Start Date End Date Chelsea Turk FNP [address] [place] [address] PCP - General Family Medicine 04/21/22 06/08/23 Francoise Harrison FNP [address] [place] [address] PCP - General Family Medicine 06/09/23 Renny Toure 11/27/24 01/26/25 Carla Castorena 12/07/24 04/18/25 documented as of this encounter
--- OUTSIDE RECORDS SUMMARY | 2025-05-31 20:58 | XMS_ITS | Clinical Summary ---
Author Organization [facility] Address [address] [address] Phone Care Team Providers Care Historical Archeologist Name Role Phone Francoise Harrison BAKED AND GRAPHITE INSPECTOR Primary Care Provider Allergies Active Allergy Reactions Criticality Noted Date Comments Penicillin Rash Low 12/21/2023 Shellfish Containing Products Anaphylaxis High 01/11 Sulfa (Sulfonamide Antibiotics) 12/10 Tree Nuts 01/12/2024 Medications hydroxychloroquin e (PLAQUENIL) 200 mg tabletIndications :Discoid lupus Take 1 tablet (200 mg total) by mouth 2 (two) times a day. 180 tablet 1 4 Active mometasone (ELOCON) 0.1 % cream Apply topically daily. 5 Active ZEPBOUND 5 mg/0.5 mL subcutaneous pen Inject 5 mg under the skin once a week. 5 Active Active Problems Problem Noted Date Diagnosed Date Foot pain, bilateral 03/06/2025 Assessment & Plan (03/06/2025 10:26 AM EDT): Significantly increased pain involving bilateral knees and feet, likely mechanical rather than inflammatory, though pattern of 1 hour of morning stiffness is noted. Patient reports approximately 50 pound weight gain in the past 3 years (2 pregnancies), and she is taking steps to lose some of this weight. She will obtain plain films of her bilateral feet next week for confirmation that her joint spaces are normal. Chronic fatigue 03/06/2025 Discoid lupus 01/12/2024 Overview (01/12/2024): Bx-confirmed 06/2020; derm: [facility] -----> DEMOS Hydroxychloroquine dx'd 04/2022 d/t medication AEs and well-controlled disease; discoid lesions recurred post- (2022) MOODY reportedly neg; 12/2022: SSA/SSB neg; anti-cardiolipin and anti-[id number] antibodies all neg No Raynaud's; compliant with sunscreen as well as heliocare supplement Assessment & Plan (03/06/2025 10:24 AM EDT): More active disease during her recent and . As detailed in HPI; significant symptomatic benefit with 15-day prednisone taper prescribed by her manager perioperative starting in mid January. She continues to have lesions involving predominantly her face and scalp, as well as intraoral lesions. It is certainly possible that she has developed comorbid systemic disease, though fatigue in the setting of recent and complicated of her third child is nonspecific. We discussed that addition of more aggressive immunosuppressive therapy to her current hydroxychloroquine may be indicated, though I need updated labs for more information, and she will obtain these next week. Assessment & Plan (01/12/2024 12:06 PM EDT): No specific e/o co-morbid systemic disease; most recent labs including ENAs, complements, and CMP requested for my review. No clear indication for rheumatology-specific intervention but happy to co-manage along with derm. Morning stiffness of joints 01/12/2024 Assessment & Plan (03/06/2025 10:27 AM EDT): 1 hour morning stiffness concerning but not specific for comorbid inflammatory arthritis Assessment & Plan (01/12/2024 12:10 PM EDT): MTPs bl as above Arthralgia of toe 01/12/2024 Assessment & Plan (01/12/2024 12:10 PM EDT): Pattern of AM stiffness of MTPs bl (20 minutes duration) s/o but not specific for co-morbid inflammatory arthritis. Note no similar pattern of finger joints; toe joint pain mitigated by routine activity and hydroxychloroquine. Baseline plain films; if sxs do not improve with wt loss would check RF and anti-CCP. Long-term use of Plaquenil 01/12/2024 Overview (03/06/2025): VFT q6 months normal per patient report c 2021 - current Assessment & Plan (03/06/2025 10:26 AM EDT): Discussion of visual field testing deferred to follow-up given prioritization of disease activity today Assessment & Plan (01/12/2024 12:10 PM EDT): Current dose is 1.65 mg/kg/day; persistent medication AEs include fatigue and sun sensitivity severe enough to result in h/a. 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 Recommend baseline CK with next routine labs. Advised pt hydroxychloroquine is safe to continue during [next desired] . Resolved Problems Problem Noted Date Diagnosed Date Resolved Date Plaquenil adverse reaction i n therapeutic use, initial encounter 01/12/2024 01/12/2024 Encounters Date Type Department Care Team Description 03/19/2025 Orders Only [facility] Rheumatology [address] [place] [address] [place] [address] Marion Etienne MD, MPH Discoid lupus (Primary Dx) 03/09/2025 10:48 AM EDT - 03/09/2025 11:59 PM EDT Hospital Encounter [facility] [address] [place] [address] Marion Etienne MD, MPH Discharge Disposition: Home or Self Care 03/06/2025 9:00 AM EDT Telemedicine - audio only [facility] Rheumatology [address] [place] [address] [place] [address] Marion Etienne MD, MPH Discoid lupus (Primary Dx); Vitamin D deficiency, unspecified; Foot pain, bilateral; Chronic fatigue; Long-term use of Plaquenil; Morning stiffness of joints 03/06/2025 Telephone [facility] Rheumatology [address] [place] [address] [place] [address] Marion Etienne MD, MPH from Last 3 Months Social History Tobacco Use Types Packs/Day Years Used Date Smoking Tobacco: Every Day Cigarettes Smokeless Tobacco: Never Alcohol Use Standard Drinks/Week Comments Not Currently 0 (1 standard drink = 0.6 oz pur e alcohol) Education Answer Date Recorded Are you interested in more education? Not on nancy e 08/23/2023 Are you concerned about learning? Not on file 08/23/2023 No 08/23/2023 No 08/23/2023 Digital Access Answer Date Recorded No 08/23/2023 No 08/23/2023 Reliable internet access at home? Not on file 08/23/2023 Device with a working camera? Not on file Comments Unknown Sex and Gender Information Value Date Recorded Sex Assigned at Not on file Legal Sex Female 2:21 PM EST Gender Identity Not on file Sexual Orientation Not on file Last Filed Vital Signs Vital Sign Reading Time Taken Comments Blood Pressure 122/76 01/12/2024 8:56 AM EDT Pulse 82 01/12/2024 8:56 AM EDT Temperature - - Respiratory Rate - - Oxygen Saturation 99% 01/12/2024 8:5 6 AM EDT Inhaled Oxygen Concentration - - Weight 134.7 kg (297 lb) 03/06/2025 8:5 3 AM EDT Height 157.5 cm (5' 2 ) 01/12/2024 8:56 AM EDT patient reported Body Mass Index 54.32 01/12/2024 8:56 AM EDT Plan of Treatment Upcoming Encounters Date Type Department Care Team (Late st Contact Info) Description 06/25/2025 3:40 PM EST Office Visit [facility] Rheumatology [address] [place] [address] Marion Etienne MD, MPH [address] [facility], [address] [place] [address] Health Maintenance Due Date Last Done Comments DEPRESSION SCREENING 2002 SMOKING Hx and SMOKELESS TOB ACCO SCREENING 2003 HEPATITIS C SCREENING 2008 HIV ONE-TIME SCREENING (18-6 5 YEARS) 2008 PNEUMOCOCCAL VACCINES (0-49 years) (1 of 2 - PCV) 2009 PAP SMEAR 2011 INFLUENZA VACCINE (#1) 2025 COVID-19 VACCINE (2024-2 6 season) 2025 Adult Td,Tdap Booster 12/30/2032 12/30/2022 HEPATITIS A VACCINES Aged Out No long er eligible based on patient's age to complete this topic HIB VACCINES Aged Out No longer eligi ble based on patient's age to complete this topic IPV VACCINES Aged Out No longer eligi ble based on patient's age to complete this topic MENINGOCOCCAL VACCINES (ACWY) Aged Out No longer eligible based on patient's age to complete this topic MENINGOCOCCAL VACCINES (B) Aged Out N o longer eligible based on patient's age to complete this topic Medical Devices Not on file Procedures Procedure Name Priority Date/Time Associated Diagnosis Comments CBC AND DIFFERENTIAL Routine 03/09/2025 11:16 AM EDT Discoid lupus COMPREHENSIVE METABOLIC PANEL (CMP) Routine 03/09/2025 11:16 AM EDT Discoid lupus COMPLEMENT C3 Routine 03/09/2025 11:16 AM EDT Discoid lupus COMPLEMENT C4 Routine 03/09/2025 11:16 AM EDT Discoid lupus DOUBLE STRANDED DNA ANTIBODIES Routine 03/09/2025 11:16 AM EDT Discoid lupus TOTAL PROTEIN CREATININE RATIO, RANDOM URINE Routine 03/09/2025 11:16 AM EDT Discoid lupus URINALYSIS WITH REFLEX TO URINE CULTURE Routine 03/09/2025 11:16 AM EDT Discoid lupus 25-OH VITAMIN D Routine 03/09/2025 11:16 AM EDT Vitamin D deficiency, unspecified SEDIMENTATION RATE (ESR) Routine 03/09/2025 11:16 AM EDT Discoid lupus C-REACTIVE PROTEIN (CRP) Routine 03/09/2025 11:16 AM EDT Discoid lupus Extractable nuclear antigen (JIM) antibodies Routine 03/09/2025 11:16 AM EDT Discoid lupus IRON AND IRON BINDING CAPACITY Routine 03/09/2025 11:16 AM EDT Chronic fatigue TSH WITH REFLEX Routine 03/09/2025 11:16 AM EDT Chronic fatigue from Last 3 Months Results * Urinalysis w/reflex Urine Culture (03/09/2025 11:16 AM EDT) COLOR Yellow Yellow [facility] CLARITY Clear [facility] GLUCOSE Negative Negative [facility] BILI Negative Negative [facility] KETONES Negative Negative [facility] SPECIFIC GRAVITY >1.030 1.005 - 1.030 [facility] BLOOD Negative Negative [facility] PH 6.0 5.0 - 8.0 [facility] Protein-UA Negative Negative [facility] NITRITE Negative Negative [facility] Leukocyte esterase, ur Negative Negative [facility] Urine (Urine) 03/09/2025 11: 16 AM EDT 03/09/2025 11:21 AM EDT Marion Etienne MD, MPH LAB URINE ORDERABLES Fin al Result Performing Organization Address [facility] de Phone Number [address] [address] * TOTAL PROTEIN CREATININE RATIO, RANDOM URINE (03/09/2025 11:16 AM EDT) URINE TOTAL PROTEIN 11.0 mg/dL [facility] URINE CREATININE 166 mg/dL [facility] URINE TP CRE RATIO 0.07 0 - 0.19 [facility] Urine (Urine) 03/09/2025 11: 16 AM EDT 03/09/2025 11:22 AM EDT Marion Etinene MD, MPH LAB URINE ORDERABLES Fin al Result Performing Organization Address City/[facility] Co de Phone Number [facility] [address] [place] [address] * Extractable nuclear antigen (JIM) antibodies (03/09/2025 11:16 AM EDT) Pathologist [facility] SS-A/RO IGG 0.7 <1.0 (Negative) U [facility] LAB MED/PATH [address] SS-B/LA IGG <0.2 <1.0 (Negative) U [facility] LAB MED/PATH [address] SM AB, IGG, S <0.2 <1.0 (Negative) U [facility] MED/PATH [address] OPERATING ROOM SPECIALIST AB, IGG <0.2 <1.0 (Negative) U [facility] MED/PATH [address] SCL 70 AB, IGG <0.2 <1.0 (Negative) U [facility] MED/PATH [address] JEROD 1 IGG <0.2 <1.0 (Negative) U [facility]/PATH [address] Blood 03/09/2025 11:1 6 AM EDT 03/09/2025 11:36 AM EDT us Marion Etienne MD, MPH LAB BLOOD BKR ORDERABLES Final Result [facility] MED/PATH [address] [place] [address] * (ABNORMAL) Comprehensive metabolic panel (03/09/2025 11:16 AM EDT) Pathologist [facility] SODIUM 135 133 - 146 mmol/L [facility] POTASSIUM 3.8 3.3 - 5.1 mmol/L [facility] CHLORIDE 103 96 - 108 mmol/L [facility] CO2 22 21 - 35 mmol/L [facility] BUN 13 6 - 19 mg/dL [facility] CREATININE 0.50 0.5 - 1.5 mg/dL [facility] GLUCOSE 83 70 - 99 mg/dL [facility] ALBUMIN 4.1 3.9 - 4.8 g/dL [facility] TOTAL PROTEIN 8.0 6.5 - 8.0 g/dL [facility] CALCIUM 9.3 8.4 - 10.3 mg/dL [facility] ALKALINE PHOSPHATASE 92 39 - 117 U/L [facility] TOTAL BILIRUBIN 0.4 0.0 - 1.2 mg/dL [facility] AST 28 0 - 37 U/L [facility] ALT 48(H) 0 - 40 U/L [facility] GLOBULIN 3.9 1 - 4.8 g/dL [facility] EGFR >120 >59 mL/min/1.7 3m2 [facility] Comment:Estimated glomerular filtration rate calculated using the CKD-EPI refit equation. ANION GAP 14 10 - 20 mmol/L [facility] Blood 03/09/2025 11:1 6 AM EDT 03/09/2025 11:36 AM EDT us Marion Etienne MD, MPH LAB BLOOD BKR ORDERABLES Final Result Performing Organization Address City/[facility]/ZIP Co de Phone Number [address] [address] * TSH with reflex (03/09/2025 11:16 AM EDT) TSH 0.83 0.27 - 4.20 uIU/mL [facility] Blood 03/09/2025 11:1 6 AM EDT 03/09/2025 11:36 AM EDT Result Barby Etienne MD, MPH LAB BLOOD BKR ORDERABLES Final Result Performing Organization Address City/[facility]/ZIP Co de Phone Number [address] [address] * (ABNORMAL) Iron and iron binding capacity (03/09/2025 11:16 AM EDT) IRON 27(L) 30 - 160 ug/dL [facility] IRON BINDING CAPACITY 350 228 - 428 ug/dL [facility] TRANSFERRIN SATURAT. 8(L) 15 - 50 % [facility] Blood 03/09/2025 11:1 6 AM EDT 03/09/2025 11:36 AM EDT us Marion Etienne MD, MPH LAB BLOOD BKR ORDERABLES Final Result Performing Organization Address City/[facility]/ZIP Co de Phone Number [address] [address] * Double stranded DNA antibodies (03/09/2025 11:16 AM EDT) Pathologist [facility] ANTI DSDNA ANTIBODY Negative at 1:10 [facility] Comment: Performing Physician, Jose L Linares M.D., [id number] Normal: Negative at 1:10 To interpret a negative test for anti-nondalton or double stranded DNA antibodies in a patient suspected of having systemic lupus erythematosus, the following limitation should be noted. Anti-double stranded DNA antibodies are usually detected in SLE patients with active disease, especially in those with active renal disease. Anti-DNA antibodies are usually not detected in SLE patients with spontaneous or drug-induced remissions. Blood 03/09/2025 11:1 6 AM EDT 03/09/2025 11:37 AM EDT Marion Etienne MD, MPH LAB BLOOD BKR ORDERABLES Final Result Performing Organization Address [facility]/ZIP Co de Phone Number [address] [address] * (ABNORMAL) 25-OH vitamin D (03/09/2025 11:16 AM EDT) Pathologist [facility] 25 OH VIT D (TOTAL) 29(L) 30 - 60 ng/mL [facility] Blood 03/09/2025 11:1 6 AM EDT 03/09/2025 11:36 AM EDT Marion Etienne MD, MPH LAB BLOOD BKR ORDERABLES Final Result Performing Organization Address City/[facility]/ZIP Co de Phone Number [address] [address] * (ABNORMAL) Sedimentation rate (ESR) (03/09/2025 11:16 AM EDT) Pathologist [facility] ESR 46(H) 0 - 20 mm/h [facility] Blood 03/09/2025 11:1 6 AM EDT 03/09/2025 11:36 AM EDT us Marion Etienne MD, MPH LAB BLOOD BKR ORDERABLES Final Result [facility] [address] [place] [address] * (ABNORMAL) CBC and differential (03/09/2025 11:16 AM EDT) WBC 7.61 4.00 - 11.00 K/uL [facility] RBC 5.49(H) 4.00 - 5.20 M/uL [facility] HGB 12.8 12.0 - 16.0 g/dL [facility] HCT 42.2 36.0 - 46.0 % [facility] PLT 284 150 - 450 K/uL [facility] MCV 76.9(L) 80.0 - 100.0 fL [facility] MCH 23.3(L) 27.0 - 31.0 pg [facility] MCHC 30.3(L) 32.0 - 36.0 g/dL [facility] RDW 16.2(H) 11.5 - 14.5 % [facility] MPV 12.3(H) 8.4 - 12.0 fL [facility] NRBC 0.00 0.00 /100 WBCs [facility] ABSOLUTE NRBC 0.00 0.00 K/uL [facility] DIFF METHOD Auto [facility] NEUTS 65.8 48.0 - 76.0 % [facility] LYMPHS 28.3 18.0 - 41.0 % [facility] MONOS 3.9(L) 4.0 - 11.0 % [facility] EOS 1.3 0.0 - 5.0 % [facility] BASOS 0.3 0.0 - 1.5 % [facility] Granulocytes, immature (%) 0.4 0.0 - 0.9 % [facility] ABSOLUTE NEUTS 5.01 1.92 - 7.60 K/uL [facility] ABSOLUTE LYMPHS 2.15 0.72 - 4.10 K/uL [facility] ABSOLUTE MONOS 0.30 0.16 - 1.10 K/uL [facility] ABSOLUTE EOS 0.10 0.00 - 0.50 K/uL [facility] ABSOLUTE BASOS 0.02 0.00 - 0.15 K/uL [facility] Granulocytes, immature 0.03 0.00 - 0.09 K/uL [facility] Blood 03/09/2025 11:1 6 AM EDT 03/09/2025 11:36 AM EDT Marion Etienne MD, MPH LAB BLOOD BKR ORDERABLES Final Result [facility] [address] [place] [address] * Complement C3 (03/09/2025 11:16 AM EDT) C3 154 81 - 157 mg/dl [facility] Blood 03/09/2025 11:1 6 AM EDT 03/09/2025 11:37 AM EDT Marion Etienne MD, MPH LAB BLOOD BKR ORDERABLES Final Result Performing Organization Address City/[facility]/ZIP Co de Phone Number [address] [address] * Complement C4 (03/09/2025 11:16 AM EDT) C4 36 12 - 39 mg/dL [facility] Blood 03/09/2025 11:1 6 AM EDT 03/09/2025 11:37 AM EDT Marion Etienne MD, MPH LAB BLOOD BKR ORDERABLES Final Result Performing Organization Address City/[facility]/ZIP Co de Phone Number [address] [address] * (ABNORMAL) C-Reactive Protein (03/09/2025 11:16 AM EDT) C REACTIVE PROTEIN 9.0(H) 0.0 - 4.0 mg/L [facility] Blood 03/09/2025 11:1 6 AM EDT 03/09/2025 11:36 AM EDT us Marion Etienne MD, MPH LAB BLOOD BKR ORDERABLES Final Result [facility] [address] [place] [address] from Last 3 Months Insurance C3 ACO C3 ACO C3 ACO C3 ACO C3 ACO C3 ACO Care Teams Historical Archeologist Relationship Specialty Start Date End Date Francoise Harrison NP PCP - General Nurse Practitioner 08/06/23 Additional Source Comments The information contained in this document represents components of the legal health record. It is not the complete legal health record.[facility]
== END 2025-05-31 16:54 | disposition home or self-care (01) ==
PROVIDERS: Physician Assistant; Emergency Provider Emergency Medicine; PCP Nurse Practitioner
DX: M75.32 Calcific tendinitis of left shoulder (principal); M77.12 Lateral epicondylitis, left elbow; M25.512 Pain in left shoulder; M25.522 Pain in left elbow
CPT/HCPCS: 36415; 73030; 73070; 73090; 73120; 80053; 84484; 84550; 85007; 85025; 85027; 85610; 85652; 85730; 86140; 93005; 93971; 99283; 99284

== ENCOUNTER → 2025-05-31 13:37 | Outpatient (BNV) | payer MEDICAID, SELFPAY | PROVIDERS: Emergency Provider Emergency Medicine; PCP Nurse Practitioner; Visit Provider Internal Medicine | DX: M25.512 Pain in left shoulder (principal) | CPT/HCPCS: 93010 ==

== ENCOUNTER → 2025-05-31 13:37 | Outpatient (BNV) | payer MEDICAID, SELFPAY | PROVIDERS: PCP Nurse Practitioner; Visit Provider Radiology Diagnostic Radiology | DX: M79.622 Pain in left upper arm (principal); M19.012 Primary osteoarthritis, left shoulder; M25.522 Pain in left elbow; S60.552A Superficial foreign body of left hand, initial encounter; M79.632 Pain in left forearm; R22.32 Localized swelling, mass and lump, left upper limb | CPT/HCPCS: 73030; 73070; 73090; 73120; 93971 ==

== ENCOUNTER 2025-07-06 12:16 | Emergency (ER) | payer MEDICAID, SELFPAY ==
--- NOTE | ~2025-07-06 | XR_ITS ---
EXAMINATION: XR CHEST CLINICAL INFORMATION: cough COMPARISON: X-ray 03/30/2024 TECHNIQUE: Frontal view of the chest was obtained. FINDINGS: The cardiomediastinal silhouette is within normal limits. The lungs are well expanded. There is no focal consolidation, edema, or effusion. No pneumothorax. No acute osseous abnormality. XR/XR chest 1V IMPRESSION: No acute pulmonary process Electronically signed by: Jakob Forman MD 07/06/2025 01:42 PM [facility]
[2025-07-06 12:24] VITALS: BP 135/63; PULSE 95; RESP 20; TEMP 37.6; O2SAT 95; BMI 50.1
[2025-07-06 13:52] LABS: Strep A Nucleic Acid Negative (Negative)
[2025-07-06 14:31] LABS: Resp Syncy Virus RNA Qual PCR NEGATIVE (Negative); SARS COV2 PCR INHOUSE NEGATIVE (Negative)
--- NOTE | 2025-07-06 14:51 | ED.URI ---
HPI - URI/Sore Throat General Chief Complaint: Upper Respiratory Symptoms Stated Complaint: Asthma, Fever, Headaches Time Seen by Provider: 07/06/25 14:50 Source: patient, RN notes reviewed and old records reviewed Mode of arrival: ambulatory History of Present Illness ED Provider: Breanne Godoy PA-C HPI Narrative: 35-year-old female with a past medical history of asthma, lupus, PCOS, presenting to the ED complaining of productive cough, chills, myalgias, generalized fatigue/weakness, chest discomfort with cough and SOB x4 days. Reports fever T-max 102 degrees. Admits to using nebulizer and inhalers at home without relief. Denies recent travel, abdominal pain Related Data Home Medications ?Medication ?Instructions ?Recorded ?Confirmed albuterol sulfate 90 mcg/actuation 2 puff inhalation Q6H PRN 03/17/24 03/17/24 aerosol inhaler hydroxychloroquine 200 mg tablet 200 mg PO BID 03/17/24 03/17/24 (Plaquenil) Previous Rx's ?Medication ?Instructions ?Recorded naproxen 500 mg tablet 500 mg PO BID PRN pain 7 days #14 05/31/25 tabs prednisone 20 mg tablet 40 mg (2 x 20 mg) PO DAILY 5 days 05/31/25 #10 tabs prednisone 20 mg tablet 40 mg (2 x 20 mg) PO DAILY 5 days 07/06/25 #10 tabs Allergies Allergy/AdvReac Type Severity Reaction Status Date / Time nut - unspecified (nut) Allergy Severe THROAT Verified 07/06/25 12:29 ITCHY Sulfa (Sulfonamide Allergy Intermediate SULFA MED Verified 07/06/25 12:29 Antibiotics) (SULFA MIGRAINE (SULFONAMIDE ANTIBIOTICS)) penicillin V Allergy Unknown rash Verified 07/06/25 12:29 Penicillins (PENICILLINS) Allergy Unknown HIVES Verified 07/06/25 12:29 SHELLFISH Allergy Intermediate SWELLING Uncoded 03/17/24 09:06 ENVIRONMENTAL Allergy Unknown RUNNY NOSE Uncoded 03/17/24 09:06 Review of Systems Review of Systems: Yes all other systems are reviewed and are negative Constitutional: Constitutional: Reports as per [facility] Past Medical History Attestation statement: The following information was validated with the patient. Source: old records reviewed Medical History Morbid obesity Benign neoplasm of pituitary gland and craniopharyngeal duct Lupus Seasonal allergies Depression PCOS (polycystic ovarian syndrome) Asthma Surgical History Hx of section Hx of tonsillectomy Family History Family History Father Asthma Mother Fibromyalgia Thyroid disease Paternal Aunt Breast cancer Paternal Grandmother Breast cancer Maternal Aunt Breast cancer Family/Other FH: thyroid cancer Social History Social History Alcohol intake: never Patient Tobacco Use Status: Current someday Tobacco user Cigarettes Per Day: 5 Substance Use Type: Marijuana Advance Directives: No Advance Directives Information Provided: No Do you have a plan to hurt others: No Plan Current occupational status: employed 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 Physical Exam Vital Signs: Vital Signs: Last Vital Signs Temp 99.7 F 07/06/25 12:24 Pulse 95 07/06/25 12:24 Resp 20 07/06/25 12:24 BP 135/63 07/06/25 12:24 Pulse Ox 95 07/06/25 12:24 O2 Del Method Room Air 07/06/25 12:24 BMI result Body Mass Index 50.1 Const: General: cooperative, healthy appearing and no acute distress Orientation/consciousness: patient oriented x3 Limitations: no limitations HEENT: Head: Yes normal to inspection and Yes atraumatic Ears: hearing grossly normal bilaterally General nose exam: Normal external nose present Face and sinus: Yes normal facial exam Mouth: Normal oral and palatal mucosa present Throat: Yes posterior oropharynx normal, Yes uvula midline, No peritonsillar mass, No uvula laterally displaced and No uvular edema Eyes: General: appearance normal, both eyes and all related structures EOM: EOMs intact bilaterally Neck: Neck: Yes normal visual inspection and Yes no meningeal signs Resp: Effort & Inspection: normal respiratory effort, no respiratory distress and no stridor Auscultation: clear to auscultation bilaterally, no crackles and no wheezes Cardio: Rate: regular rate Heart sounds: S1 normal heart sound present and S2 normal heart sound present Skin: Rashes: no rashes Wounds: no wounds Neuro: General: patient oriented x3, tone normal and no meningeal signs Cranial nerves: Yes CN's II-XII intact bilaterally Gait exam (Neuro): Normal gait present Extrem: General: Yes normal to inspection Course Course Course Narrative: 1452-- XR chest 1V IMPRESSION: No acute pulmonary process -influenza a positive > patient walked out of the emergency department prior to receiving nebulized treatment Medical Decision Making Medical Decision Making MDM Narrative: 35-year-old female with a past medical history of asthma, lupus, PCOS, presenting to the ED complaining of productive cough, chills, myalgias, generalized fatigue/weakness, chest discomfort with cough and SOB x4 days. On exam low-grade temp 99.7 degrees, NAD, nontoxic appearing, lungs CTA, oropharynx WNL, uvula midline. Talking in complete sentences. No respiratory distress. Concern for viral illness vs asthma exacerbation vs strep pharyngitis. No evidence of JUDICIAL ASSISTANT/retropharyngeal abscess. Rule out pneumonia Plan: Viral testing, rapid strep, CXR, ED bronch protocol Please refer to course for remaining clinical decision making, interpretation of labs/imaging results, and discussions with consultants and/or family members. Differential Diagnosis Differential Diagnoses: The differential diagnosis associated with the presentation includes As above Lab Data MDM Lab Attestation statement: I reviewed the patient's lab results. Labs: Lab Results 07/06/25 Range/Units 13:38 Influenza Type A (PCR) POSITIVE A (Negative) Influenza Type B (PCR) NEGATIVE (Negative) RSV RNA Qual (PCR) NEGATIVE (Negative) SARS-CoV-2 RNA (RT-PCR) NEGATIVE (Negative) S. pyogenes GrpA RAI Negative (Negative) Independent Interpretation I performed an independent interpretation of an: Plain X-Ray Radiology Impression Discussion of test interpretation with radiology: I have reviewed the radiologist's reading. External Record Review External record reviewed: Inpatient record, Office record, Outpatient record, Prior outpatient labs, Prior outpatient radiology, Primary care record and Outside ED record Tests considered The following testing was considered but not selected: As above Prescription Management I considered prescription management with: Pain Medication and Antibiotic Chronic Conditions Patient?s care impacted by: Other (Asthma) Social Determinants Patient?s care significantly limited by Social Determinants of Health including: Other Social Determinant of Health Discharge Plan Discharge Clinical Impression: Influenza A, Asthma Patient Disposition: Home, Self-Care Instructions: Asthma (ED), Influenza (DC) Additional Instructions: You have the flu Your x-ray does not show pneumonia Continue using your machine and inhalers at home In addition take prednisone as prescribed until completion You have a virus No antibiotics are indicated at this time Make sure you are staying hydrated. Drink plenty of fluids. Rest Alternate Tylenol and Motrin at home as needed for body aches and fever Follow-up with your doctor. If symptoms persist or worsen return to the emergency department *If you are a child & not tolerating liquid or urinating for more than 6 hours, or fevers are uncontrolled with medications at home, return to the emergency department* Prescriptions: New prednisone 20 mg tablet 40 mg PO DAILY 5 Days Qty: 10 0RF No Action naproxen 500 mg tablet 500 mg PO BID PRN (Reason: pain) 7 Days Qty: 14 0RF prednisone 20 mg tablet 40 mg PO DAILY 5 Days Qty: 10 0RF albuterol sulfate 90 mcg/actuation HFA aerosol inhaler 2 puff inhalation Q6H PRN hydroxychloroquine [Plaquenil] 200 mg tablet 200 mg PO BID Referrals: Physician,Unknown J [Primary Care Provider, Medical] - 1 week Print Language: Taiwanese
--- OUTSIDE RECORDS SUMMARY | 2025-07-06 15:01 | XMS_ITS | Clinical Summary ---
Author Organization [facility] Address [address] [address] Phone Care Team Providers Care Memorial Counselor Name Role Phone Francoise Harrison JOSE Primary Care Provider Allergies Active Allergy Reactions Criticality Noted Date Comments Penicillin Rash Low 12/21/2023 Shellfish Containing Products Anaphylaxis High 01/11 Sulfa (Sulfonamide Antibiotics) 12/10 Tree Nuts 01/12/2024 Medications hydroxychloroqui ne (PLAQUENIL) 200 mg tabletIndication s:Discoid lupus Take 1 tablet (200 mg total) by mouth 2 (two) times a day. 180 tablet 1 4 Active mometasone (ELOCON) 0.1 % cream Apply topically daily. 5 Active ZEPBOUND 5 mg/0.5 mL subcutaneous pen Inject 5 mg under the skin once a week. 5 Active methotrexate 2.5 MG Oral tabletIndication s:Morning stiffness of joints Take 5 tablets (12.5 mg total) by mouth every 7 days for 14 days, THEN 6 tablets (15 mg total) every 7 days for 14 days, THEN 7 tablets (17.5 mg total) every 7 days for 14 days. 36 tablet 5 026 Active folic acid (FOLVITE) 1 MG tablet Take 1 tablet (1 mg total) by mouth daily. Except the day you take your methotrexate 90 tablet 5 Active Hospital, Clinic, or Other Facility Administered Medication Ordered Dose Route Frequency Start Date End Date Status triamcinolone acetonide (KENALOG-40) 40 mg/mL injection 80 mgIndications:Calcific tendonitis of left shoulder 80 mg IAtc Once 06/25/2025 06/25/20 25 Ended Active Problems Problem Noted Date Diagnosed Date Encounter for methotrexate monitoring 06/28/2025 Overview (06/28/2025): s/p tubal ligation Assessment & Plan (06/28/2025 10:58 AM EST): Common methotrexate side effects reviewed with patient today and written medication information provided for her reference. She is aware of need updated monitoring labs about 1 month after her first dose. 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 Overview (06/28/2025): Bx-confirmed 06/2020; derm: [facility] -----> [facility] Hydroxychloroquine dx'd 04/2022 d/t medication AEs and well-controlled disease; discoid lesions recurred post- (2022) MOODY reportedly neg; 12/2022: SSA/SSB neg; anti-cardiolipin and anti-[id number] antibodies all neg No Raynaud's; compliant with sunscreen as well as heliocare supplement Labs 03/09/25 C3 nl C4 nl Jo1 neg LIGHT RAIL SIGNAL TECHNICIAN neg Sm neg Scl neg Assessment & Plan (06/28/2025 10:55 AM EST): Favor addition of belimumab or anifrolumab to hydroxychloroquine monotherapy given active disease; will discuss with established hotel or motel cleaning supervisor going forward. Assessment & Plan (03/06/2025 10:24 AM EDT): More active disease during her recent and . As detailed in HPI; significant symptomatic benefit with 15-day prednisone taper prescribed by her hotel or motel cleaning supervisor starting in mid January. She continues to [...] stiffness of joints 01/12/2024 Assessment & Plan (06/28/2025 10:52 AM EST): Pattern and distribution of symmetric small joint pain with prolonged morning stiffness concerning for comorbid seronegative inflammatory arthritis, though there is no synovitis on exam today. Patient is amenable to addition of methotrexate to her hydroxychloroquine. Assessment & Plan (03/06/2025 10:27 AM EDT): [...] Encounters Date Type Department Care Team Description 06/28/2025 Telephone [facility] Rheumatology [address] [place] [address] Marion Etienne MD, MPH 06/26/2025 Telephone [facility] Rheumatology [address] [place] [address] Marion Etienne MD, MPH Medication Management 06/25/2025 3:40 PM EST Office Visit [facility] Rheumatology [address] [place] [address] Marion Etienne MD, MPH Morning stiffness of joints (Primary Dx); Discoid lupus; Encounter for methotrexate monitoring; Calcific tendonitis of left shoulder 06/25/2025 Refill [facility] Rheumatology [address] [place] [address] Patricia Messina MA Medication Refill 06/25/2025 Refill [facility] Clinic [address] [place] [address] Patricia Messina MA Medication Refill from Last 3 Months Social History Tobacco Use Types Packs/Day Years Used Date Smoking Tobacco: Every Day Cigarettes Smokeless Tobacco: Never Tobacco Cessation:Ready to Q uit: Not Asked; Counseling Given: Not Answered Alcohol Use Standard Drinks/Week Comments Not Currently [...] Sign Reading Time Taken Comments Blood Pressure 120/70 06/25/2025 3:39 PM EST Pulse 91 06/25/2025 3:39 PM EST Temperature - - Respiratory Rate - - Oxygen Saturation 97% 06/25/2025 3:39 PM EST Inhaled Oxygen Concentration - - Weight 129.3 kg (285 lb) 06/25/2025 3:39 PM EST with shoes Height 157.5 cm (5' 2.01 ) 06/25/2025 3:39 PM ES T Body Mass Index 52.11 06/25/2025 3:39 PM EST Plan of Treatment Upcoming Encounters Date Type Department Care Team (Late st Contact Info) Description 09/28/2025 11:40 AM EDT Office Visit [facility] Rheumatology Clinic [address] [place] [address] Marion Etienne MD, MPH [address] [place] [address], [address] [place] [address] [email or web address] Health Maintenance Due Date Last Done Comments COVID-19 VACCINE (#1) 1995 DEPRESSION SCREENING 2002 SMOKING Hx and SMOKELESS TOBACCO SCREENING 2003 HEPATITIS C SCREENING 2008 HIV ONE-TIME SCREENING (18-6 5 YEARS) 2008 PNEUMOCOCCAL VACCINES (0-49 years) (1 of 2 - PCV) 2009 PAP SMEAR 2011 INFLUENZA VACCINE (#1) 2025 SCREENING FOR DIABETES 03/09/2028 03/09/2025 Adult Td,Tdap Booster 10/13/2034 10/13/2024 , 12/30/2022 HEPATITIS A VACCINES Aged Out No [...] this topic Medical Devices Not on file Insurance C3 ACO C3 ACO C3 ACO C3 ACO C3 ACO [facility] C3 ACO Care Teams Memorial Counselor Relationship Specialty Start Date End Date Francoise Harrison NP PCP - General Nurse Practitioner 08/06/23 Additional Source Comments The information contained in this document represents components of the legal health record. It is not the complete legal health record.[facility]
--- OUTSIDE RECORDS SUMMARY | 2025-07-06 15:01 | XMS_ITS | Encounter Summary ---
Author Organization [facility] Address [address] [place], [place] [address] [place] [address] Phone Care Team Providers Care Analytical Sciences Director Name Role Phone Francoise Harrison JOSE Primary Care Provider Encounter Details Date Type Department Care Team (Late st Contact Info) Description 06/28/2025 Telephone [facility] Rheumatology Clinic [address] [place] [address] Marion Etienne MD, MPH 22 [facility], [address] [place] [address] Social History Tobacco Use Types Packs/Day Years [...] on file Sexual Orientation Not on file documented as of this encounter Progress Notes * Marion Etienne MD, MPH - 06/28/2025 11:22 AM EST I would like to discuss this patient's care with her tactical intelligence officer at [facility] (not urgent) thank you documented in this encounter Plan of Treatment Upcoming Encounters Date Type Department Care Team (Late st Contact Info) Description 09/28/2025 11:40 AM EDT Office Visit [facility] Rheumatology Clinic [address] [place] [address] Marion Etienne MD, MPH [address] [place] [address] [address] [place] [address] [email or web address] documented as of this encounter Visit Diagnoses Not on filedocumented in this encounter Care Teams Analytical Sciences Director Relationship Specialty Start Date End Date Francoise Harrison NP PCP - General Nurse Practitioner 08/06/23 documented as of this encounter Additional Source Comments The information contained in this document represents components of the legal health record. It is not the complete legal health record.[facility]
--- OUTSIDE RECORDS SUMMARY | 2025-07-06 15:01 | XMS_ITS | Encounter Summary ---
Author Organization [employer] Address [address] [place] [address] [address] [place] [address] Care Team Providers Care Storage Facility Housekeeper Name Role Phone [facility] Primary Care Provider [phone] Renny Toure Unavailable Carla Castorena Unavailable Encounter Details Date Type Department Care Team (Late st Contact Info) Description 06/12/2024 Orders Only [facility] [address] [place] [address] [place], [place], [place] [facility] [address] [place] [address] Social History Tobacco Use Types Packs/Day Years [...] on filedocumented in this encounter Care Teams Storage Facility Housekeeper Relationship Specialty Start Date End Date Francoise Harrison FNP [address] [place] [address] PCP - General Family Medicine 06/09/23 Renny Toure 11/27/24 01/26/25 Carla Castorena 12/07/24 04/18/25 documented as of this encounter
--- OUTSIDE RECORDS SUMMARY | 2025-07-06 15:01 | XMS_ITS | Encounter Summary ---
Author Organization [employer] Address [address] [place] [address] [address] [place] [address] Care Team Providers Care Editor School Photograph Name Role Phone Chelsea Turk Primary Care Provider Francoise Harrison EMBEDDED ENGINEER Primary Care Provider [phone] Renny Toure Unavailable Carla Castorena Unavailable Encounter Details Date Type Department Care Team (Late st Contact Info) Description 05/25/2023 Telephone [facility] MEDICINE [address] [place], [place] [phone] Chelsea Turk FNP [address] [place], [place] [phone] Social History Tobacco Use Types Packs/Day Years [...] on filedocumented in this encounter Care Teams Editor School Photograph Relationship Specialty Start Date End Date Chelsea Turk FNP [address] [place] [address] PCP - General Family Medicine 04/21/22 06/08/23 Francoise Harrison FNP [address] [place] [address] PCP - General Family Medicine 06/09/23 Renny Toure 11/27/24 01/26/25 Carla Castorena 12/07/24 04/18/25 documented as of this encounter
--- OUTSIDE RECORDS SUMMARY | 2025-07-06 15:01 | XMS_ITS | Encounter Summary ---
Author Organization [facility] Address [address] [address] Phone Care Team Providers Care Nurse General Duty Name Role Phone Francoise Harrison BUFFING MACHINE OPERATOR SEMIAUTOMATIC Primary Care Provider Reason for Visit * Reason Onset Date Comments Medication Refill 06/25/2025 Encounter Details Date Type Department Care Team (Late st Contact Info) Description 06/25/2025 Refill [facility] Rheumatology [address] [place] [address] [place], [place] [address] [place] [address] [email or web address] Medication Refill Social History Tobacco Use Types Packs/Day Years [...] on file documented as of this encounter Plan of Treatment Upcoming Encounters Date Type Department Care Team (Late st Contact Info) Description 09/28/2025 11:40 AM EDT Office Visit [facility] Rheumatology [address] [place] [address] Marion Etienne MD, MPH 22 [facility], [address] [place] [address] [email or web address] documented as of this encounter Visit Diagnoses Not on filedocumented in this encounter Care Teams Nurse General Duty Relationship Specialty Start Date End Date Francoise Harrison NP PCP - General Nurse Practitioner 08/06/23 documented as of this encounter Additional Source Comments The information contained in this document represents components of the legal health record. It is not the complete legal health record.[facility]
--- OUTSIDE RECORDS SUMMARY | 2025-07-06 15:01 | XMS_ITS | Encounter Summary ---
Author Organization [employer] Address [address] [place] [address] [address] [place] [address] Care Team Providers Care Double End Production Grinder Name Role Phone [facility] Primary Care Provider [phone] Renny Toure Unavailable aCrla Castorena Unavailable Encounter Details Date Type Department Care Team (Late st Contact Info) Description 05/10/2024 Orders Only [facility] [address] [place] [address] [place], [place], [facility] [address] [place] [address] Social History Tobacco Use Types Packs/Day Years [...] PAP/HPV (09/28/2023 3:36 PM EDT) [facility] HEALTH MAINTENANCE Final Result documented in this encounter Visit Diagnoses Not on filedocumented in this encounter Care Teams Double End Production Grinder Relationship Specialty Start Date End Date [facility] [address] [place] [address] PCP - General Family Medicine 06/09/23 Renny Toure 11/27/24 01/26/25 Carla Castorena 12/07/24 04/18/25 documented as of this encounter
--- OUTSIDE RECORDS SUMMARY | 2025-07-06 15:01 | XMS_ITS | Encounter Summary ---
Author Organization [employer] Address [address] [place] [address] [address] [place] [address] Care Team Providers Care Spindraw Operator Name Role Phone [facility] Primary Care Provider [phone] Renny Toure Unavailable Carla Castorena Unavailable Encounter Details Date Type Department Care Team (Late st Contact Info) Description 01/19/2024 Orders Only [facility] [address] [place] [address] [facility] [address] [place] [address] Discoid lupus Social History Tobacco Use Types [...] erythematosus documented in this encounter Care Teams Spindraw Operator Relationship Specialty Start Date End Date [facility] [address] [place] [address] PCP - General Family Medicine 06/09/23 Renny Toure 11/27/24 01/26/25 Carla Castorena 12/07/24 04/18/25 documented as of this encounter
--- OUTSIDE RECORDS SUMMARY | 2025-07-06 15:01 | XMS_ITS | Encounter Summary ---
Author Organization [employer] Address [address] [place] [address] [address] [place] [address] Care Team Providers Care Veterinary Pathologist Name Role Phone Chelsea Turk Primary Care Provider [phone] Francoise Harrison FAMILY PRACTICE DOCTOR Primary Care Provider [phone] Renny Toure Unavailable Carla Castorena Unavailable Reason for Visit * Reason Onset Date Comments Appointment Request 05/25/2023 Encounter Details Date Type Department Care Team (Late st Contact Info) Description 05/25/2023 Telephone [facility] MEDICINE [address] [place], [place] [phone] Chelsea Turk FNP [address] [place], [place] [phone] Appointment Request Social History Tobacco Use Types [...] on filedocumented in this encounter Care Teams Veterinary Pathologist Relationship Specialty Start Date End Date Chelsea Turk FNP [address] [place] [address] PCP - General Family Medicine 04/21/22 06/08/23 Francoise Harrison FNP [address] [place] [address] PCP - General Family Medicine 06/09/23 Renny Toure 11/27/24 01/26/25 Carla Castorena 12/07/24 04/18/25 documented as of this encounter
--- OUTSIDE RECORDS SUMMARY | 2025-07-06 15:01 | XMS_ITS | Encounter Summary ---
Author Organization [facility] Address [address] [place] [address] [place], [place] [address] [place] [address] Phone Care Team Providers Care Glazier Artist Name Role Phone Francoise Harrison POLICE AND FIRE DISPATCHER Primary Care Provider Reason for Visit * Reason Onset Date Comments Medication Management 06/26/2025 Encounter Details Date Type Department Care Team (Late st Contact Info) Description 06/26/2025 Telephone [facility] [address] [place] [address] Marion Etienne MD, MPH [address] [facility], [address] [place] [address] [email or web address] Medication Management Social History Tobacco Use Types Packs/Day Years [...] as of this encounter Progress Notes * Linda Marks LPN - 06/26/2025 8:[address] Barfield would like us to check in with pt in 3-4 weeks(1st week of July ) to see how mtx is going and if tolerating it documented in this encounter Plan of Treatment Upcoming Encounters Date Type Department Care Team (Late st Contact Info) Description 09/28/2025 11:40 AM EDT Office Visit [facility] [address] [place] [address] Marion Etienne MD, MPH [address] [facility], [address] [place] [address] [email or web address] documented as of this encounter Visit Diagnoses Not on filedocumented in this encounter Care Teams Glazier Artist Relationship Specialty Start Date End Date Francoise Harrison NP PCP - General Nurse Practitioner 08/06/23 documented as of this encounter Additional Source Comments The information contained in this document represents components of the legal health record. It is not the complete legal health record.[facility]
--- OUTSIDE RECORDS SUMMARY | 2025-07-06 15:01 | XMS_ITS | Clinical Summary ---
Author Organization [employer] Address [address] [place] [address] [place] [address] Care Team Providers Care Package Line Relief Operator Name Role Phone [facility] Francoise [facility] Primary Care Provider [phone] [phone] Allergies Active Allergy Reactions Criticality Noted Date [...] 07/30/2023 Discoid lupus 07/30/2023 07/30/2023 Pituitary adenoma ([facility]/HCC) 07/30/202307/12 Morbid obesity ([facility]) 07/30/2023 024 Encounters Date Type Department Care Team Description 06/04/2025 Telephone [facility] [address] [place] [address] Francoise Harrison FNP Care Coordination 06/01/2025 Orders Only [facility] [address] [place] [address] Francoise Harrison FNP 05/31/2025 Orders Only [facility] [address] [place] [address] Francoise Harrison FNP 04/18/2025 Patient Outreach [facility] Department [address] [place] [address] [place] [address] Carla Castorena c3 care management (Notification of Closed RN Care Management //[facility]3 Member Dylon Aranda 1990 has closed services as Declined to participate in program. /Member transferred to Other:declined//manager supplier: Carla Castorena clinical care transition mgr) from Last 3 Months Immunizations Immunization Administration [...] - 19+ 3-dose series) 2009 Pneumococcal Vaccine: Pediatrics (0 to 5 Years) and At-Risk Patients (6 to 49) Years (1 of 2 - PCV) 2009 HPV/Cotest 2020 SDOH Screening 03/08/2024 03/08/2023 Tobacco Screening 07/30/2024 07/30/2023 COVID-19 Vaccine (1 - 2024-2 6 season) 2025 Influenza Vaccine (#1) 2025 Cervical Cancer Screening 09/27/2026 Pap Smear 09/27/2026 09/28/2023 DTaP/Tdap/Td Vaccines (3 - T d or Tdap) 10/13/2034 10/13/2024, 12/30/2022 Zoster Vaccines (1 of 2) 2040 RSV Patients and Patients Aged 60 years or older (1 - [...] Procedure Name Priority Date/Time Associated Diagnosis Comments US DOPPLER EXT UPPER VENOUS LEFT Routine 05/31/2025 XR HAND 2 VW LEFT Routine 05/31/2025 XR SHOULDER 2 OR MORE VIEWS LEFT Routine 05/31/2025 XR FOREARM 2 VIEWS LEFT Routine 05/31/2025 XR ELBOW 2 VW LEFT Routine 05/31/2025 AMB REFERRAL TO DERMATOLOGY Routine 04/18/2025 Routine general medical examination at health care facility PAP/HPV Routine 09/28/2023 3:36 PM EDT HIV ANTIBODY/ANTIGEN, 4TH GENERATION Routine 08/14/2022 from Last 3 Months or Most Recently Relevant to Health Maintenance Results * XR FOREARM 2 VIEWS LEFT (05/31/2025) Anatomical Region Laterality Modality Radiographic Maggi ging Result [facility] IMG XR PROCEDURES Final R esult * XR SHOULDER 2 OR MORE VIEWS LEFT (05/31/2025) Anatomical Region Laterality Modality Radiographic Maggi ging Result [facility] IMG XR PROCEDURES Final R esult * XR HAND 2 VW LEFT (05/31/2025) Anatomical Region Laterality Modality Radiographic Maggi ging [facility] IMG XR PROCEDURES Final R esult * XR ELBOW 2 VW LEFT (05/31/2025) Anatomical Region Laterality Modality Radiographic Maggi ging [facility] IMG XR PROCEDURES Final R esult * US DOPPLER EXT UPPER VENOUS LEFT (05/31/2025) Anatomical Region Laterality Modality Body Ultrasound Result [facility] IMG US PROCEDURES Final R esult * Referral to Dermatology (04/18/2025) Result [facility] OUTPATIENT REFERRAL ORDER GLENYS Final Result * HM PAP/HPV (09/28/2023 3:36 PM EDT) [facility] HEALTH MAINTENANCE Final Result * HIV Antibody/Antigen, 4th Generation (08/14/2022) Blood [facility] LAB BLOOD ORDERABLES Edit ed Result - Final from Last 3 Months or Most Recently Relevant to Health Maintenance Insurance [facility] C3 Care Teams Package Line Relief Operator Relationship Specialty Start Date End Date [facility] [address] [place] [address] PCP - General Family Medicine 06/09/23
--- OUTSIDE RECORDS SUMMARY | 2025-07-06 15:01 | XMS_ITS | Encounter Summary ---
Author Organization [employer] Address [address] [place] [address] 7 [place] [address] Care Team Providers Care Sweetbread Trimmer Name Role Phone [facility] Primary Care Provider [phone] [phone] Encounter Details Date Type Department Care Team (Late st Contact Info) Description 05/31/2025 Orders Only [facility] [address] [place] [address] [place], [place], [facility] [address] [place] [address] Social History Tobacco Use Types Packs/Day Years [...] Anatomical Region Laterality Modality Radiographic Maggi ging [facility] IMG XR PROCEDURES Final R esult * XR SHOULDER 2 OR MORE VIEWS LEFT (05/31/2025) Anatomical Region Laterality Modality Radiographic Maggi ging [facility] IMG XR PROCEDURES Final R esult * XR FOREARM 2 VIEWS LEFT (05/31/2025) Anatomical Region Laterality Modality Radiographic Maggi ging [facility] IMG XR PROCEDURES Final R esult * XR ELBOW 2 VW LEFT (05/31/2025) Anatomical Region Laterality Modality Radiographic Maggi ging [facility] IMG XR PROCEDURES Final R esult documented in this encounter Visit Diagnoses Not on filedocumented in this encounter Care Teams Sweetbread Trimmer Relationship Specialty Start Date End Date [facility] [address] [place] [address] PCP - General Family Medicine 06/09/23 documented as of this encounter
--- OUTSIDE RECORDS SUMMARY | 2025-07-06 15:01 | XMS_ITS | Encounter Summary ---
Author Organization [employer] Address [address] [place] [address] [address]t [place] [address] Care Team Providers Care Carpet Layer Name Role Phone [facility] Primary Care Provider [phone] [phone] Renny Toure Unavailable Carla Castorena Unavailable Encounter Details Date Type Department Care Team (Late st Contact Info) Description 08/02/2023 Orders Only [facility] [address] [place] [address] [place], [place], [facility] [address] [place] [address] Social History Tobacco Use Types Packs/Day Years [...] t he electric, gas, oil or water [employer] threatened to shut off services in your [...] (03/05/2023) Blood Venous blood specimen / Unknown [facility] LAB BLOOD ORDERABLES Edit ed Result - Final * HIV Antibody/Antigen, 4th Generation (08/14/2022) Blood [facility] LAB BLOOD ORDERABLES Edit ed Result - Final * Syphilis Screen (08/14/2022) Blood [facility] LAB BLOOD ORDERABLES Jennifer l Result * Rubella Antibody (IgG), Immune Status (08/14/2022) Blood Venous blood specimen / Unknown [facility] LAB BLOOD ORDERABLES Jennifer l Result * Hepatitis C Ab (08/14/2022) Blood [facility] LAB BLOOD ORDERABLES Jennifer l Result * Hepatitis B Surface Antigen (08/14/2022) Blood Venous blood specimen / Unknown [facility] LAB BLOOD ORDERABLES Jennifer l Result * TSH (08/14/2022) Blood Venous blood specimen / Unknown [facility] LAB BLOOD ORDERABLES Edit ed Result - Final documented in this encounter Visit Diagnoses Not on filedocumented in this encounter Care Teams Carpet Layer Relationship Specialty Start Date End Date [facility] [address] [place] [address] PCP - General Family Medicine 06/09/23 Renny Toure 11/27/24 01/26/25 Carla Castorena 12/07/24 04/18/25 documented as of this encounter
--- OUTSIDE RECORDS SUMMARY | 2025-07-06 15:01 | XMS_ITS | Encounter Summary ---
Author Organization [employer] Address [address] [place] [address] 7[address] [place] [address] Care Team Providers Care Mix House Tender Name Role Phone [facility] Primary Care Provider [phone] [phone] Renny Toure Unavailable Carla Castorena Unavailable Encounter Details Date Type Department Care Team (Late st Contact Info) Description 10/18/2023 Orders Only [place] [facility] [address] [place] [address] [place], [place], [facility] [address] [place] [address] Social History Tobacco Use Types Packs/Day Years [...] EST) Blood Venous blood specimen / Unknown [facility] LAB BLOOD ORDERABLES Jennifer l Result documented in this encounter Visit Diagnoses Not on filedocumented in this encounter Care Teams Mix House Tender Relationship Specialty Start Date End Date [facility] [address] [place] [address] PCP - General Family Medicine 06/09/23 Renny Toure 11/27/24 01/26/25 Carla Castorena 12/07/24 04/18/25 documented as of this encounter
--- OUTSIDE RECORDS SUMMARY | 2025-07-06 15:01 | XMS_ITS | Encounter Summary ---
Author Organization [employer] Address [address] [place] [address] 7 [place] [address] Care Team Providers Care High Pressure Cleaner Name Role Phone [facility] Primary Care Provider [phone] [phone] Encounter Details Date Type Department Care Team (Late st Contact Info) Description 06/01/2025 Orders Only [place] [facility] [address] [place] [address] [place], [place], [facility] [address] [place] [address] Social History Tobacco Use Types Packs/Day Years [...] DOPPLER EXT UPPER VENOUS LEFT Routine 05/31/2025 documented in this encounter Results * US DOPPLER EXT UPPER VENOUS LEFT (05/31/2025) Anatomical Region Laterality Modality Body Ultrasound [facility] IM US PROCEDURES Final R esult documented in this encounter Visit Diagnoses Not on filedocumented in this encounter Care Teams High Pressure Cleaner Relationship Specialty Start Date End Date Francoise Harrison FNP [address] [place] [address] PCP - General Family Medicine 06/09/23 documented as of this encounter
--- OUTSIDE RECORDS SUMMARY | 2025-07-06 15:01 | XMS_ITS | Encounter Summary ---
Author Organization [facility] Address [address] [address] Phone Care Team Providers Care Rooming House Keeper Name Role Phone Francoise Harrison HEALTH TEACHER Primary Care Provider Reason for Visit * Reason Onset Date Comments Medication Refill 06/25/2025 Encounter Details Date Type Department Care Team (Late st Contact Info) Description 06/25/2025 Refill [facility] Rheumatology [address] [place] [address] Patricia [place], [place] [address] [place] [address] [email or web address] Medication Refill Social History Tobacco Use Types [...] Description 09/28/2025 11:40 AM EDT Office Visit [facility] Rheumatology [address] [place] [address] Marion Etienne MD, MPH [address] [facility], [address] [place] [address] [email or web address] documented as of this encounter Visit Diagnoses Not on filedocumented in this encounter Care Teams Rooming House Keeper Relationship Specialty Start Date End Date Francoise Harrison NP PCP - General Nurse Practitioner 08/06/23 documented as of this encounter Additional Source Comments The information contained in this document represents components of the legal health record. It is not the complete legal health record.[facility]
== END 2025-07-06 15:15 | disposition left against medical advice (07) ==
PROVIDERS: Emergency Provider Emergency Medicine
DX: J10.1 Influenza due to other identified influenza virus with other respiratory manifestations (principal); R50.9 Fever, unspecified; R05.9 Cough, unspecified; J45.909 Unspecified asthma, uncomplicated
CPT/HCPCS: 71045; 87637; 87651; 99281; 99283

== ENCOUNTER → 2025-07-06 12:31 | Outpatient (BNV) | payer MEDICAID, SELFPAY | PROVIDERS: Visit Provider Radiology Diagnostic Ultrasound | DX: R05.9 Cough, unspecified (principal) | CPT/HCPCS: 71045 ==